=== PATIENT | male | born 1985 | race Two or more races ===

== ENCOUNTER 2021-06-04 17:31 | Emergency (ER) | payer MEDICAID, SELFPAY ==
--- NOTE | 2021-06-04 | ECG_ITS ---
Test Reason : cp Blood Pressure : / mmHG Vent. Rate : 091 BPM Atrial Rate : 091 BPM P-R Int : 160 ms QRS Dur : 078 ms QT Int : 350 ms P-R-T Axes : 048 035 062 degrees QTc Int : 430 ms Normal sinus rhythm Nonspecific T wave abnormality Abnormal ECG When compared with ECG of 03-JAN-2019 17:45, No significant change was found Referred By: Generic ED Physician Electronically Signed By:ISMAEL PARIKH MD
--- NOTE | ~2021-06-04 | XR_ITS ---
EXAMINATION: XR CHEST CLINICAL INFORMATION: Chest pain. COMPARISON: Chest radiograph dated from 01/03/2019. TECHNIQUE: PA view of the chest was obtained. FINDINGS: No significant abnormality is noted involving the heart, lungs, mediastinum, bony thorax or soft tissues. XR/XR chest 1V IMPRESSION: Unremarkable examination.
[2021-06-04 19:21] VITALS: BP 159/85; PULSE 80; RESP 18; TEMP 36.8; O2SAT 99; BMI 36.6
--- NOTE | 2021-06-04 19:50 | ED.CHESTPAIN ---
HPI - Chest Pain General Chief Complaint: Chest Pain Stated Complaint: chest pain Time Seen by Provider: 06/04/21 19:50 Source: patient Mode of arrival: ambulatory Limitations: no limitations History of Present Illness HPI narrative: chest pain substernal for one week. patient feels short of breath with it. No cough no fever. Patient thought it was gas but the pain kept getting worse. No N/V/D. MD complaint: chest pain Onset (ago): week(s) Timing of current episode: constant Pain location: substernal and epigastric Pain radiation: back Severity: moderate Quality: other (pressure) Relieving factors: other (belching) Exacerbating factors: eating Related Data Previous Rx's Medication Instructions Recorded pantoprazole 40 mg tablet,delayed 40 mg PO DAILY #20 tab 06/04/21 release (Protonix) Allergies Allergy/AdvReac Type Severity Reaction Status Date / Time No Known Allergies Allergy Verified 06/04/21 19:21 [No Known Allergies*] Review of Systems Constitutional: Constitutional: Reports no additional constitutional complaints Eyes: Eyes: Reports no additional eye complaints ENT: Denies dizziness Cardiovascular: Cardiovascular: Reports no additional cardiovascular complaints Respiratory: Respiratory: Reports as per HPI Gastrointestinal: Gastrointestinal: Reports no additional gastrointestinal complaints Musculoskeletal: Musculoskeletal: Reports no additional musculoskeletal complaints Integumentary/Breasts: Skin/Breast: Denies rash Neurologic: Reports system reviewed and no additional complaints, except as documented, Denies dizziness and Denies Sensory deficit (Neuro) Psychiatric: Psychiatric: Denies anxiety [facility] Past Medical History Medical History Diabetes Hypertension Kidney disease, chronic, stage III (GFR 30-59 ml/min) Surgical History H/O neck surgery Social History Social History Advance Directives: No Advance Directives Information Provided: No Physical Exam Vital Signs: Vital Signs: Last Vital Signs Temp 98.2 F 06/04/21 19:21 Pulse 80 06/04/21 19:21 Resp 18 06/04/21 19:21 BP 159/85 H 06/04/21 19:21 Pulse Ox 99 06/04/21 19:21 BMI result Body Mass Index 36.6 Neuro: Sensory Exam: No Sensory deficit (Neuro) Course Reevaluation(s) Reevaluation #1: no evidence of cardiac ischemia will dc on protonix Time: 21:05 MDM - Chest Pain Lab Data Result diagrams: 06/04/21 20:25 06/04/21 20:25 Labs: Lab Results 06/04/21 06/04/21 06/04/21 Range/Units 20:25 20:25 20:25 WBC 11.1 H (4.8-10.8) X10*3/uL RBC 4.08 L (4.60-5.80) X10*6/uL Hgb 11.8 L (14.0-18.0) g/dl Hct 35.6 L (42.0-52.0) % MCV 87.3 (80.0-98.0) fL MCH 28.9 (27.0-33.0) pg MCHC 33.1 (31.0-36.0) g/dl RDW 13.1 (11.0-16.0) % Plt Count 245 (160-400) X10*3/uL MPV 11.8 (9.4-12.4) fL Immature Gran % (Auto) 0.4 (0.0-0.4) % Neut % (Auto) 68.9 (45-73) % Lymph % (Auto) 22.4 (20-40) % [place] % (Auto) 5.3 (2-11) % Eos % (Auto) 2.8 (0-4) % Baso % (Auto) 0.2 (0-2) % Lymph # (Auto) 2.5 (1.2-4.9) X10*3/uL [place] # (Auto) 0.6 (0.1-1.2) X10*3/uL Eos # (Auto) 0.3 (0.0-0.4) X10*3/uL Baso # (Auto) 0.0 (0.0-0.2) X10*3/uL Abs Immat Gran (auto) 0.04 H (0.00-0.03) X10*3/uL Absolute Neuts (auto) 7.7 (2.0-8.3) x10*3/uL Absolute Nucleated RBC 0.000 (0.0-0.012) X10*3/uL Nucleated RBC % (auto) 0.0 (0.0-0.2) /100WBC Sodium 136 (135-145) mmol/L Potassium 4.4 (3.3-5.1) mmol/L Chloride 103 (96-108) mmol/L Carbon Dioxide 24 (22-29) mmol/L Anion Gap 13 (12-20) BUN 37 H (9-16) mg/dL Creatinine 2.17 H (0.5-1.4) mg/dL Estim Creat Clear Calc 61.1 Estimated GFR 35 Random Glucose 294 H (60-115) mg/dL Calcium 9.3 (8.4-10.2) mg/dL Troponin I High Sens < 3.5 (<3.5-35.0) ng/L Imaging Data Chest x-ray: Radiologist's impression: IMPRESSION: Unremarkable examination. ? ECG Data ECG #1: Interpretation: sinus 90, no st or twave changes Discharge Plan Discharge Clinical Impression: Atypical chest pain Gastritis Qualifiers: Gastritis type: unspecified gastritis Chronicity: unspecified Gastritis bleeding: without bleeding Qualified Code(s): K29.70 - Gastritis, unspecified, without bleeding Patient Disposition: Home, Self-Care Instructions: Gastritis (ED), Noncardiac Chest Pain (ED) Prescriptions: New pantoprazole [Protonix] 40 mg tablet,delayed release (DR/EC) 40 mg PO DAILY Qty: 20 RF: 0 Referrals: Constantino Andersen MD [Primary Care Provider] - 1 week
[2021-06-04 20:30] LABS: MANUAL DIFF FLAG NO
[2021-06-04 20:32] LABS: Basophils Percent Auto 0.2 % (0-2); Eosinophils Absolute Auto 0.3 X10*3/uL (0.0-0.4); Eosinophils Percent Auto 2.8 % (0-4); Hematocrit 35.6 % (42.0-52.0); Hemoglobin 11.8 g/dl (14.0-18.0); Imm Gran Abs Auto 0.04 X10*3/uL (0.00-0.03); Imm Gran Pct Auto 0.4 % (0.0-0.4); Lymphocytes Absolute Auto 2.5 X10*3/uL (1.2-4.9); Lymphocytes Percent Auto 22.4 % (20-40); Mean Corpuscular HGB Conc 33.1 g/dl (31.0-36.0); Mean Corpuscular Hemoglobin 28.9 pg (27.0-33.0); Mean Corpuscular Volume 87.3 fL (80.0-98.0); Mean Platelet Volume 11.8 fL (9.4-12.4); Monocytes Absolute Auto 0.6 X10*3/uL (0.1-1.2); Monocytes Percent Auto 5.3 % (2-11); Neutrophils Absolute Auto 7.7 x10*3/uL (2.0-8.3); Neutrophils Percent Auto 68.9 % (45-73); Platelet Count 245 X10*3/uL (160-400); Red Blood Count 4.08 X10*6/uL (4.60-5.80); Red Cell Distribution Width 13.1 % (11.0-16.0); White Blood Count 11.1 X10*3/uL (4.8-10.8)
[2021-06-04 20:46] LABS: Anion Gap 13 (12-20); Blood Urea Nitrogen 37 mg/dL (9-16); Calcium 9.3 mg/dL (8.4-10.2); Carbon Dioxide 24 mmol/L (22-29); Chloride 103 mmol/L (96-108); Creatinine Clr Calc Pharmacy 61.1; Estimated Glomerular Filt Rate 35; Glucose Random 294 mg/dL (60-115); Potassium 4.4 mmol/L (3.3-5.1); Sodium 136 mmol/L (135-145)
[2021-06-04 20:54] LABS: Troponin-I High Sensitivity < 3.5 ng/L (<3.5-35.0)
[2021-06-04] MEDS: Pantoprazole Sodium 40 MG/10 ML VIAL IVPUSH (21:27)
== END 2021-06-04 21:34 | disposition home or self-care (01) ==
PROVIDERS: Emergency Provider Emergency Medicine; PCP Internal Medicine
DX: R07.89 Other chest pain (principal); K29.70 Gastritis, unspecified, without bleeding; E11.22 Type 2 diabetes mellitus with diabetic chronic kidney disease; I12.9 Hypertensive chronic kidney disease with stage 1 through stage 4 chronic kidney disease, or unspecified chronic kidney disease; N18.30 Chronic kidney disease, stage 3 unspecified
CPT/HCPCS: 36415; 71045; 80048; 84484; 85025; 93005; 96374; 99283; 99284

== ENCOUNTER 2022-01-28 11:05 | Emergency (ER) | payer MEDICAID, SELFPAY ==
[2022-01-28 13:26] VITALS: BP 160/86; PULSE 86; RESP 20; TEMP 36.8; O2SAT 100; BMI 37.3
--- NOTE | 2022-01-28 14:45 | ED.BACK ---
HPI - Back Pain/Injury General Chief Complaint: Back Pain/Injury Stated Complaint: Lower back pain Time Seen by Provider: 01/28/22 14:45 History of Present Illness HPI Narrative: Patient complains of right-sided back pain no radiation worse with movement, no numbness weakness or tingling, no known injury, no changes to bowel or bladder Related Data Previous Rx's Medication Instructions Recorded pantoprazole 40 mg tablet,delayed 40 mg PO DAILY #20 tabs 06/04/21 release (Protonix) cyclobenzaprine 5 mg tablet 5 mg PO TID PRN muscle spasm #14 01/28/22 tabs oxycodone 5 mg tablet 5 mg PO Q6H PRN pain #10 tabs 01/28/22 Allergies Allergy/AdvReac Type Severity Reaction Status Date / Time No Known Allergies Allergy Verified 01/28/22 13:26 [No Known Allergies*] Review of Systems Review of Systems: Positive for back pain worse with movement Negatives are no fever chills no dizziness weakness no headache neck pain no chest pain no abdominal pain no numbness weakness or tingling no radiation of the pain no dysuria no frequency no incontinence no changes to bowel or bladder no skin rash Yes all other systems are reviewed and are negative PMFSH Past Medical History Source: nursing notes reviewed Medical History Diabetes Hypertension Kidney disease, chronic, stage III (GFR 30-59 ml/min) Surgical History H/O neck surgery Social History Social History Advance Directives: No Advance Directives Information Provided: No Physical Exam Vital Signs: Vital Signs: Last Vital Signs Temp 98.2 F 01/28/22 13:26 Pulse 86 01/28/22 13:26 Resp 20 01/28/22 13:26 BP 160/86 H 01/28/22 13:26 Pulse Ox 100 01/28/22 13:26 O2 Del Method 01/28/22 13:26 BMI result Body Mass Index 37.3 General appearance is no acute distress Head is normocephalic atraumatic Neck is supple Chest wall nontender No respiratory distress Abdomen soft nontender The back had right lower lumbar tenderness, skin was normal in appearance no redness warmth or wound, no CVA tenderness no focal bony tenderness, pain easily reproduced with bending and standing Extremities full range of motion x4 Neuro gait is normal patient can walk on heels walk on toes, motor is 5/5 x4 and sensation is intact and symmetrical Course Course Course Narrative: Well-appearing patient with back strain no neurological deficit is discharged Discharge Plan Discharge Clinical Impression: Strain of lumbar region Patient Disposition: Home, Self-Care Additional Instructions: You likely have strained muscles in her back and usually this resolves on its own in a few days Follow with primary doctor if needed Return any time any worse condition or any concerns Use Tylenol as needed if your going to work or driving, but you can use muscle relaxer or narcotic for home use only as they may cause drowsiness Prescriptions: New oxycodone 5 mg tablet 5 mg PO Q6H PRN (Reason: pain) Qty: 10 0RF Rx Instructions: Partial Fill upon patient request. Narcotic may cause drowsiness no driving for 6 hours after taking cyclobenzaprine 5 mg tablet 5 mg PO TID PRN (Reason: muscle spasm) Qty: 14 0RF Rx Instructions: This medication may cause drowsiness so no driving for 8 hours after taking No Action pantoprazole [Protonix] 40 mg tablet,delayed release (DR/EC) 40 mg PO DAILY Qty: 20 0RF Stand Alone Forms: Work/School Release
== END 2022-01-28 14:59 | disposition home or self-care (01) ==
PROVIDERS: Emergency Provider Emergency Medicine; PCP Internal Medicine
DX: S39.012A Strain of muscle, fascia and tendon of lower back, initial encounter (principal); X58.XXXA Exposure to other specified factors, initial encounter; Y93.9 Activity, unspecified; Y92.9 Unspecified place or not applicable; Y99.9 Unspecified external cause status; E11.9 Type 2 diabetes mellitus without complications
CPT/HCPCS: 99282; 99283

== ENCOUNTER 2022-09-03 06:12 | Inpatient (IN) | payer MEDICAID, SELFPAY ==
--- NOTE | ~2022-09-03 | CT_ITS ---
EXAMINATION: CT ABDOMEN AND PELVIS WITHOUT CONTRAST CLINICAL INFORMATION: Left-sided abdominal pain. Rule out kidney stone. COMPARISON: 01/26/2019 TECHNIQUE: Multidetector volumetric imaging was performed from the superior aspect of the liver through the pubic symphysis. Sagittal and coronal reformatted images were obtained on the technologist's workstation. This CT examination was performed using dose optimization techniques as appropriate, variously including the following: *Automated exposure control *Adjustment of mA and/or kV according to patient size (this includes techniques or standardized protocols for targeted exams where dose is matched to indication/reason for exam; i.e. extremities or head) *Use of iterative reconstruction technique DLP: 913 mGy-cm FINDINGS: LUNG BASES: The visualized lung bases are unremarkable. LIVER, GALLBLADDER, AND BILIARY TREE: The liver is normal in size, shape, and attenuation. No focal hepatic lesion or biliary ductal dilatation is present. The gallbladder is unremarkable with no evidence of radiopaque gallstones, gallbladder wall thickening, or obvious pericholecystic inflammatory changes. PANCREAS: Unremarkable. SPLEEN: Unremarkable. ADRENAL GLANDS: Unremarkable. KIDNEYS AND URETERS: The kidneys are normal in size, shape, and attenuation. No hydronephrosis or hydroureter. Mild cortical thinning at the lower pole of the right kidney. Multiple bilateral renal calculi. On the right there are greater than 10 total calculi throughout the kidney. The largest is seen at the midpole measuring 0.4 cm, 12.5 cm from the posterior axillary line. On the left there are at least 3 calculi present. This includes a midpole 0.2 cm calculus which is 12 cm from the posterior axillary line. BLADDER: Normally distended without wall thickening. No calculi. GASTROINTESTINAL TRACT: The stomach is unremarkable. Normal caliber of the small bowel. No obstruction. The appendix is prominent measuring 1.2 cm. There is appearance of fatty infiltration of the appendiceal wall with the wall measuring 0.3 cm in thickness. There may be very faint inflammation adjacent to the tip of the appendix. ABDOMINAL WALL: No significant hernia is appreciated. LYMPH NODES: Normal. VASCULAR: Unremarkable. PELVIC VISCERA: The prostate and seminal vesicles are unremarkable. OSSEOUS STRUCTURES: No acute or suspicious osseous abnormality. Mild degenerative changes of the spine. Vacuum disc phenomenon at L5-S1. CT/CT abdomen pelvis wo IV con IMPRESSION: 1. No hydronephrosis. Multiple bilateral nonobstructing renal calculi. 2. Prominent appearance of the appendix with fatty infiltration of the appendiceal wall. There may be very faint inflammation adjacent to the tip of the appendix. This could represent early appendicitis. This may also be associated with chronic inflammation. Fleischner guidelines were followed.
[2022-09-03 06:22] VITALS: BP 156/83; PULSE 89; RESP 16; TEMP 36.7; O2SAT 98; BMI 47.8
--- OUTSIDE RECORDS SUMMARY | 2022-09-03 07:08 | XMS_ITS | Continuity of Care Document ---
:1985 Author Organization [facility] Endocrinology and D mylesmonse Address [address] [place] [phone]- Care Team Providers Name Role Phone Nathaly GAINES, Constantino Williamson Primary Care Physician Encounter [facility] Date(s): 10/22/21 - 11/21/21 [facility] Endocrinology and Diabetes [address] [place] [id number] Attending Physician: Amaris Myrick Admitting Physician: AdmAmaris tyler Referring Physician: AdmtrAmaris Allergies, Adverse Reactions, Alerts No Known Allergies Immunizations Given and Recorded Vaccine Date Status Refusal Reason Pneumococcal Poly (PPV23) (oldterm)1 12/30/08 Given diphtheria-tetanus toxoids (DT)2 12/01/08 Given 1Admin Note: [id number] Note: VIS GIVEN date of vis 11/30/93 Medications Freestyle Jose 2 14-day Sensors Freestyle Jose 2 14-day Sensors, See Instructions, # 2 each, Refills 11, Tot. Refills 11, Maintenance, Use to scan for blood sugar at least 4 times daily. E10.65., 06/06/21 10:54:00 EST, Compound, 178, cm, 05/29/21 14:24:00 EST, Height Start Date: 06/06/21 Status: OrderedHumalog 100 u/ml subcutaneous injection = 70 units, Subcutaneous Infusion, 2 times a day with meals, 0 Refills, Maintenance, 05/29/21 14:29:00 EST, Partial fill upon patient request if the prescription is for a schedule II opioid drug. Start Date: 05/29/21 Status: OrderedHumalog Kwik Pen 100 units/mL subcutaneous injection See Instructions, Subcutaneous Infusion, Take up to 20 units, 3 times daily before meals. E10.65., #30 mL, 5 Refills, Maintenance, 05/29/21 15:01:00 EST, [facility] #[id number], Partial fill uponpatient request if the prescription is for a sche... Start Date: 05/29/21 Stop Date: 11/20/22 Status: OrderedLantus Solostar Pen 100 units/mL subcutaneous solution See Instructions, Take 70 units once daily. E10.65., # 30 mL, 5 Refills, Soft Stop, 05/29/21 15:01:00 EST, Solution, [facility] #[id number], Partial fill upon patient request if the prescription is for a schedule II opioid drug., 178, cm, ... Start Date: 05/29/21 Status: Orderedlevothyroxine 75 mcg (0.075 mg) oral tablet = 75 mcg, By Mouth, Daily, # 30 tablet, 5 Refills, Maintenance, 01/18/15 17:24:19, Tablet, 75 mcg ByMouth Daily,x30 days Start Date: 01/18/15 Stop Date: 07/17/15 Status: Orderedlisinopril 10 mg oral tablet 1 tablet = 10 mg, By Mouth, Daily, # 30 tablet, 5 Refills, Maintenance, 01/18/15 17:24:30, Tablet, 1tablet By Mouth Daily,x30 days Start Date: 01/18/15 Stop Date: 07/17/15 Status: OrderedPen [place], 31 G x 5 mm BD Ultra Fine III See Instructions, # 150 each, Refills 11, Tot. Refills 11, Maintenance, Use to inject insulin 4 times daily. E11.65., 05/29/21 15:01:00 EST, Supply, 178, cm, 05/29/21 14:24:00 EST, Height Start Date: 05/29/21 Stop Date: 05/24/22 Status: Ordered Problem List Condition Effective Dates Status Health Status Informant Diabetes mellitus type 1(Confirmed) Active DKA - Diabetic ketoacidosis(Confirmed) Active DKA - Diabetic ketoacidosis(Confirmed) Active Drugs - total Active non-compliance(Confirmed) Hypothyroid(Confirmed) Active Lost to follow-up(Confirmed) Active Number of appointments Active missed(Confirmed) Obese class II(Confirmed) Active Obesity(Confirmed) 12/01/08 Active Social History Social History Type Response Smoking Status Never smoker entered on: 10/01/13 Sex
--- OUTSIDE RECORDS SUMMARY | 2022-09-03 07:08 | XMS_ITS | Continuity of Care Document ---
:1985 Author Organization [facility] Endocrinology and D mylesjuan diegotes Address [address] [place] [id number]- Care Team Providers Name Role Phone Constantino Andersen MD Primary Care Physician En[place] [facility] [place] Date(s): 07/24/21 - 11/21/21 [facility] Endocrinology and Diabetes [address] [place] [id number] Attending Physician: Shonda Merino MD Admitting Physician: Shonda Merino MD Referring Physician: Constantino Andersen MD Allergies, Adverse Reactions, Alerts No Known Allergies Immunizations Given and Recorded Vaccine Date Status Refusal Reason Pneumococcal Poly (PPV23) (oldterm)1 12/30/08 Given diphtheria-tetanus toxoids (DT)2 12/01/08 Given 1Admin Note: [email or web address] Note: VIS GIVEN date of vis 11/30/93 [...] mL, 5 Refills, Maintenance, 05/29/21 15:01:00 EST, [facility] #[id number], Partial fill uponpatient request if the prescription is for a sche... Start Date: 05/29/21 Stop Date: 11/20/22 Status: OrderedLantus Solostar Pen 100 units/mL subcutaneous solution See Instructions, Take 70 units once daily. E10.65., # 30 mL, 5 Refills, Soft Stop, 05/29/21 15:01:00 EST, Solution, [facility] #[id number], Partial fill upon patient request if the [...] Date: 01/18/15 Stop Date: 07/17/15 Status: OrderedPen [place], 31 G x 5 mm BD Ultra [...]
--- NOTE | 2022-09-03 08:07 | ED.ABDPAIN ---
HPI - Abdominal Pain General Chief Complaint: Abdominal Pain Stated Complaint: Abdominal pain Time Seen by Provider: 09/03/22 07:22 Source: patient Mode of arrival: ambulatory Limitations: no limitations History of Present Illness HPI narrative: 37-year-old male came in for evaluation of left lower abdominal pain. Abdominal pain started since earlier today pain is localized to the left lower abdominal area with no radiation, pain was started as mild 2/10 and pain was getting worse now it is 10/10 relieved by laying on his left side no aggravating factor, no associated miller with nausea, vomiting, fever or chills. Pain now is constant. Related Data Previous Rx's Medication Instructions Recorded pantoprazole 40 mg tablet,delayed 40 mg PO DAILY #20 tabs 06/04/21 release (Protonix) cyclobenzaprine 5 mg tablet 5 mg PO TID PRN muscle spasm #14 01/28/22 tabs oxycodone 5 mg tablet 5 mg PO Q6H PRN pain #10 tabs 01/28/22 Allergies Allergy/AdvReac Type Severity Reaction Status Date / Time No Known Allergies Allergy Verified 01/28/22 13:26 [No Known Allergies*] Review of Systems Review of Systems All other systems are reviewed and are negative Constitutional: Reports as per HPI and Reports no additional constitutional complaints Eyes: Reports as per HPI and Reports no additional eye complaints Reports system reviewed and no additional complaints, except as documented Cardiovascular: Reports as per HPI and Reports no additional cardiovascular complaints Respiratory: Reports as per HPI and Reports no additional respiratory complaints Gastrointestinal: Reports as per HPI and Reports no additional gastrointestinal complaints Genitourinary: Reports no additional female genitourinary complaints Musculoskeletal: Reports no additional musculoskeletal complaints Skin/Breast: Reports system reviewed and no additional complaints, except as docu Psychiatric: Reports no additional psychiatric complaints Endocrine: Reports no additional endocrine complaints Hematologic/Lymphatic: Reports no additional hematologic/lymphatic complaints Allergic/Immunologic: Reports no additional allergic/immunologic complaints Reports system reviewed and no additional complaints, except as documented and Reports Abnormal speech present [facility] Past Medical History Medical History (Updated 09/03/22 @ 10:44 by Luis Damico MD) Diabetes Hypertension Kidney disease, chronic, stage III (GFR 30-59 ml/min) Surgical History H/O neck surgery Social History Social History Advance Directives: No Physical Exam ED Vital Signs: Vital Signs - 24 hr 09/03/22 06:22 09/03/22 09:28 Temperature 98.0 F Pulse Rate 89 83 Respiratory Rate 16 14 Blood Pressure 156/83 H 139/76 Pulse Oximetry 98 100 Oxygen Delivery Method Room Air Room Air BMI result Body Mass Index 47.8 Vital signs have been reviewed as appeared to be correct. Blood pressure normal. Heart rate normal. Respiration rate normal. Temperature normal. Oxygen saturation normal. Appearance: Alert. Oriented X3. No acute distress. Head: Normal external exam. Normocephalic. Atraumatic. No Nuno signs noted. No raccoon eyes noted Eyes: PERRLA. EOMI. Conjunctiva and sclera normal. Eyelids normal. ENT: TM's Normal. Pharynx normal. Uvula midline. Moist mucous membranes. No trismus noted. No drooling noted. No muffled voice noted. Neck: Normal inspection. Neck supple. FROM. No adenopathy. Thyroid Normal. No meningeal signs. No neck mass noted. CVS: Normal heart rate and rhythm. Heart sound normal. No murmurs noted. Pulses normal throughout. Respiratory: No respiratory distress. Painless inspiration. Breath sounds normal. No wheezes/rales/rhonchi noted. Chest nontender. No accessory muscle usage noted or decreased air movement noted. Abdomen: Soft, mild tenderness to the left lower quadrant area with no rebound tenderness, no guarding.. Bowel sounds normal in all 4 quadrants. No distention noted. No organomegaly noted. No visible injury noted. Back: No CVA tenderness. Full range of motion noted. Skin: Skin warm and dry. Normal skin color. Normal skin turgor. No rashes/lesions/lacerations noted. Extremities: No lower extremity edema. Extremities exhibit normal range of motion. Extremities nontender. Neuro: Oriented X 3. Cranial nerve exam: II-XII are grossly intact No motor deficit. No sensory deficit. Reflexes normal. Course Course Course Narrative: 37-year-old male came in for evaluation of 1 day history of lower abdominal pain, CT physical exam and labs are consistent with early acute appendicitis, Dr. De Paz who examined the patient and will be a admitted to surgery. Patient also is showing acute on chronic renal insufficiency likely due to uncontrolled diabetes patient hemoglobin A1c is 9.1. Medical Decision Making Differential Diagnosis Differential Diagnoses: The differential diagnosis associated with the presentation includes (Acute abdominal pain, acute appendicitis, acute on chronic renal insufficiency, poorly controlled diabetes) Admission/Observation Consideration of admission/observation: Escalation of care including admission/observation considered Consult Healthcare Provider Management of the patient was discussed with: Missile Tracking Technician Dr. De Paz. Lab Data MDM Lab Attestation statement: I reviewed the patient's lab results. 09/03/22 08:27 09/03/22 08:27 Labs: Lab Results 09/03/22 09/03/22 09/03/22 Range/Units 08:27 08:27 09:33 WBC 11.3 H (4.8-10.8) X10*3/uL RBC 3.89 L (4.60-5.80) X10*6/uL Hgb 11.1 L (14.0-18.0) g/dl Hct 33.6 L (42.0-52.0) % MCV 86.4 (80.0-98.0) fL MCH 28.5 (27.0-33.0) pg MCHC 33.0 (31.0-36.0) g/dl RDW 12.8 (11.0-16.0) % Plt Count 242 (160-400) X10*3/uL MPV 11.3 (9.4-12.4) fL Immature Gran % (Auto) 0.2 (0.0-0.4) % Neut % (Auto) 68.7 (45-73) % Lymph % (Auto) 22.4 (20-40) % [place] % (Auto) 5.6 (2-11) % Eos % (Auto) 2.8 (0-4) % Baso % (Auto) 0.3 (0-2) % Lymph # (Auto) 2.5 (1.2-4.9) X10*3/uL [place] # (Auto) 0.6 (0.1-1.2) X10*3/uL Eos # (Auto) 0.3 (0.0-0.4) X10*3/uL Baso # (Auto) 0.0 (0.0-0.2) X10*3/uL Abs Immat Gran (auto) 0.02 (0.00-0.03) X10*3/uL Absolute Neuts (auto) 7.7 (2.0-8.3) x10*3/uL Absolute Nucleated RBC 0.000 (0.0-0.012) X10*3/uL Nucleated RBC % (auto) 0.0 (0.0-0.2) /100WBC Sodium 142 (135-145) mmol/L Potassium 4.3 (3.3-5.1) mmol/L Chloride 108 (96-108) mmol/L Carbon Dioxide 21 L (22-29) mmol/L Anion Gap 17 (12-20) BUN 30 H (9-16) mg/dL Creatinine 2.37 H (0.5-1.4) mg/dL Estim Creat Clear Calc 51.1 Estimated GFR 31 Random Glucose 121 H (60-115) mg/dL Estimat Average Glucose mg/dL Hemoglobin A1c % % Calcium 8.8 (8.4-10.2) mg/dL Total Bilirubin 0.3 (0.0-1.0) mg/dL Direct Bilirubin < 0.2 (0.0-0.5) mg/dL AST 14 (5-37) U/L ALT 20 (0-40) U/L Alkaline Phosphatase 73 (39-117) U/L Total Protein 6.8 (6.5-8.0) g/dL Albumin 3.9 (3.5-5.0) g/dL Lipase 14 (8-78) U/L Urine Color Yellow Urine Appearance Clear Urine pH 6.0 (5.0-9.0) Ur Specific [place] 1.015 (1.005-1.025) Urine Protein >=1000 (4+) H (Neg-Trace) mg/dL Urine Glucose (UA) 500 H (Negative) mg/dL Urine Ketones Negative (Negative) mg/dL Urine Blood Small (1+) H (Negative) Urine Nitrite Negative (Negative) Ur Leukocyte Esterase Negative (Negative) Urine RBC 0-2 (0-2) /HPF Urine WBC 0-5 (0-5) /HPF Ur Squamous Epith Cells 3-5 (0-2) /HPF Urine Bacteria None Seen (None Seen) Hyaline Casts 3-5 (0-2) /LPF 09/03/22 Range/Units 09:41 WBC (4.8-10.8) X10*3/uL RBC (4.60-5.80) X10*6/uL Hgb (14.0-18.0) g/dl Hct (42.0-52.0) % MCV (80.0-98.0) fL MCH (27.0-33.0) pg MCHC (31.0-36.0) g/dl RDW (11.0-16.0) % Plt Count (160-400) X10*3/uL MPV (9.4-12.4) fL Immature Gran % (Auto) (0.0-0.4) % Neut % (Auto) (45-73) % Lymph % (Auto) (20-40) % [place] % (Auto) (2-11) % Eos % (Auto) (0-4) % Baso % (Auto) (0-2) % Lymph # (Auto) (1.2-4.9) X10*3/uL [place] # (Auto) (0.1-1.2) X10*3/uL Eos # (Auto) (0.0-0.4) X10*3/uL Baso # (Auto) (0.0-0.2) X10*3/uL Abs Immat Gran (auto) (0.00-0.03) X10*3/uL Absolute Neuts (auto) (2.0-8.3) x10*3/uL Absolute Nucleated RBC (0.0-0.012) X10*3/uL Nucleated RBC % (auto) (0.0-0.2) /100WBC Sodium (135-145) mmol/L Potassium (3.3-5.1) mmol/L Chloride (96-108) mmol/L Carbon Dioxide (22-29) mmol/L Anion Gap (12-20) BUN (9-16) mg/dL Creatinine (0.5-1.4) mg/dL Estim Creat Clear Calc Estimated GFR Random Glucose (60-115) mg/dL Estimat Average Glucose 226 mg/dL Hemoglobin A1c % 9.5 % Calcium (8.4-10.2) mg/dL Total Bilirubin (0.0-1.0) mg/dL Direct Bilirubin (0.0-0.5) mg/dL AST (5-37) U/L ALT (0-40) U/L Alkaline Phosphatase (39-117) U/L Total Protein (6.5-8.0) g/dL Albumin (3.5-5.0) g/dL Lipase (8-78) U/L Urine Color Urine Appearance Urine pH (5.0-9.0) Ur Specific [place] (1.005-1.025) Urine Protein (Neg-Trace) mg/dL Urine Glucose (UA) (Negative) mg/dL Urine Ketones (Negative) mg/dL Urine Blood (Negative) Urine Nitrite (Negative) Ur Leukocyte Esterase (Negative) Urine RBC (0-2) /HPF Urine WBC (0-5) /HPF Ur Squamous Epith Cells (0-2) /HPF Urine Bacteria (None Seen) Hyaline Casts (0-2) /LPF Independent Interpretation I performed an independent interpretation of an: CT Scan (Suspicion for acute appendicitis.) Radiology Impression Discussion of test interpretation with radiology: I have reviewed the radiologist's reading. Chronic Conditions Patient?s care impacted by: Diabetes Medications Administered Discontinued Medications Generic Name Dose Route Start Last Admin Trade Name Freq PRN Reason Stop Dose Admin Sodium Chloride 1,000 mls @ 999 mls/hr 09/03/22 07:53 09/03/22 09:51 Ns IV 09/03/22 08:53 999 mls/hr .Q1H1M ONE Administration Ketorolac Tromethamine 30 mg 09/03/22 07:53 09/03/22 09:50 Ketorolac Tromethamine 30 Mg/Ml Vial IVPUSH 09/03/22 07:54 30 mg ONCE ONE Administration Morphine Sulfate 2 mg 09/03/22 07:53 09/03/22 09:50 Morphine Sulfate 2 Mg/Ml Cartridge IVPUSH 09/03/22 07:54 2 mg ONCE ONE Administration Protocol Discharge Plan Discharge Clinical Impression: Acute appendicitis, Acute on chronic renal insufficiency Patient Disposition: Admitted As Inpatient
[2022-09-03 08:32] LABS: MANUAL DIFF FLAG NO
[2022-09-03 08:34] LABS: Basophils Percent Auto 0.3 % (0-2); Eosinophils Absolute Auto 0.3 X10*3/uL (0.0-0.4); Eosinophils Percent Auto 2.8 % (0-4); Hematocrit 33.6 % (42.0-52.0); Hemoglobin 11.1 g/dl (14.0-18.0); Imm Gran Abs Auto 0.02 X10*3/uL (0.00-0.03); Imm Gran Pct Auto 0.2 % (0.0-0.4); Lymphocytes Absolute Auto 2.5 X10*3/uL (1.2-4.9); Lymphocytes Percent Auto 22.4 % (20-40); Mean Corpuscular Hemoglobin 28.5 pg (27.0-33.0); Mean Corpuscular Volume 86.4 fL (80.0-98.0); Mean Platelet Volume 11.3 fL (9.4-12.4); Monocytes Absolute Auto 0.6 X10*3/uL (0.1-1.2); Monocytes Percent Auto 5.6 % (2-11); Neutrophils Absolute Auto 7.7 x10*3/uL (2.0-8.3); Neutrophils Percent Auto 68.7 % (45-73); Platelet Count 242 X10*3/uL (160-400); Red Blood Count 3.89 X10*6/uL (4.60-5.80); Red Cell Distribution Width 12.8 % (11.0-16.0); White Blood Count 11.3 X10*3/uL (4.8-10.8)
[2022-09-03 08:57] LABS: Alanine Aminotransferase 20 U/L (0-40); Albumin Level 3.9 g/dL (3.5-5.0); Alkaline Phosphatase 73 U/L (39-117); Anion Gap 17 (12-20); Aspartate Amino Transferase 14 U/L (5-37); Bilirubin Direct < 0.2 mg/dL (0.0-0.5); Bilirubin Total 0.3 mg/dL (0.0-1.0); Blood Urea Nitrogen 30 mg/dL (9-16); Calcium 8.8 mg/dL (8.4-10.2); Carbon Dioxide 21 mmol/L (22-29); Chloride 108 mmol/L (96-108); Creatinine Clr Calc Pharmacy 51.1; Estimated Glomerular Filt Rate 31; Glucose Random 121 mg/dL (60-115); Lipase 14 U/L (8-78); Potassium 4.3 mmol/L (3.3-5.1); Sodium 142 mmol/L (135-145); Total Protein 6.8 g/dL (6.5-8.0)
[2022-09-03 09:28] VITALS: BP 139/76; PULSE 83; RESP 14; O2SAT 100
[2022-09-03 09:50] LABS: Appearance Urine Clear; Color Urine Yellow; Glucose Urine UA 500 mg/dL (Negative); Leukocyte Esterase Urine Negative (Negative); Nitrite Urine Negative (Negative); Specific Gravity - Urine 1.015 (1.005-1.025); UMIC TRIGGER UACC YES; Urine Blood Small (1+) (Negative); Urine Ketones Negative (Negative); Urine Protein >=1000 (4+) mg/dL (Neg-Trace)
[2022-09-03] MEDS: Ketorolac Tromethamine 30 MG/ML VIAL IVPUSH (09:50)
[2022-09-03] MEDS: Morphine Sulfate 2 MG/ML CARTRIDGE IVPUSH (09:50)
[2022-09-03] MEDS: 0.9 % Sodium Chloride 1,000 ML 999 ML IV (09:51)
[2022-09-03 09:57] LABS: Estimated Average Glucose 226 mg/dL; Hemoglobin A1c % 9.5 %
[2022-09-03 10:03] LABS: Bacteria Urine None Seen (None Seen); RBC Urine 0-2 /HPF (0-2); WBC Urine 0-5 /HPF (0-5)
--- NOTE | 2022-09-03 10:18 | P.HPGS_ITS ---
History of Present Illness History of Present Illness Date of Service: 09/03/22 Chief complaint: Abdominal pain Narrative: Jordy Rehman is a 37 year old male who reports a history of type 1 diabetes since about 7 years of age seen in consultation for vague abdominal pain localizing to the right lower quadrant that started around 23:00 last night. He noted vague, periumbilical pain with migration to the right lower quadrant and suprapubic area. There has been no associated nausea or vomiting or blood per rectum. Patient denies any known history of inflammatory bowel disease in this is the 1st episode of abdominal pain. He denies any recent trauma. Patient also notes a history of stage III or 4 kidney disease related to his diabetes. He is unsure of his diabetic control and does not recall a recent hemoglobin A1c. Social history is remarkable for not smoking or drinking. He works doing [employer] Family history is negative for any GI malignancies Review of Systems Review of Systems: Yes all other systems are reviewed and are negative Constitutional: Constitutional: Reports as per [facility] Past Medical History Medical History (Updated 09/03/22 @ 10:22 by Rj De Paz MD) Diabetes Hypertension Kidney disease, chronic, stage III (GFR 30-59 ml/min) Surgical History Surgical History H/O neck surgery Social History Social History Advance Directives: No Meds Allergies Allergy/AdvReac Type Severity Reaction Status Date / Time No Known Allergies Allergy Verified 01/28/22 13:26 [No Known Allergies*] Physical Exam Vital Signs: Vital Signs: Last Vital Signs Temp 98.0 F 09/03/22 06:22 Pulse 83 09/03/22 09:28 Resp 14 09/03/22 09:28 BP 139/76 09/03/22 09:28 Pulse Ox 100 09/03/22 09:28 O2 Del Method 09/03/22 09:28 BMI result Body Mass Index 47.8 The patient is non-toxic & in good spirits NC/AT, PERRLA, EOMI Mood, affect & judgment all appear appropriate Sclera anicteric conjunctiva pink and moist Oropharynx is clear with no aphthous ulcers, Mallampati class 4, mucous membranes moist Neck is supple with no masses, adenopathy or bruits Thyroid is nontender and free of dominant masses Heart is regular, normal S1-S2 no rubs or murmurs Lungs are clear and equal anteriorly with no audible wheezing, rubs or dullness to percussion No CVA tenderness present Abdomen is obese with no demonstrable hernias. There is vague right-sided abdominal discomfort in the right lower quadrant with no peritoneal sign and no guarding. No HSM, rebound, rigidity, guarding, masses or bruits are present. Rectal exam is deferred Skin has good turgor and is free of rashes Extremities free of cyanosis clubbing edema Results Results Labs: Short CBC 09/03/22 Range/Units 08:27 WBC 11.3 H (4.8-10.8) X10*3/uL Hgb 11.1 L (14.0-18.0) g/dl Hct 33.6 L (42.0-52.0) % Plt Count 242 (160-400) X10*3/uL BMP 09/03/22 08:27 Sodium 142 Potassium 4.3 Chloride 108 Carbon Dioxide 21 L BUN 30 H Creatinine 2.37 H Calcium 8.8 Liver Function 09/03/22 Range/Units 08:27 Total Bilirubin 0.3 (0.0-1.0) mg/dL Direct Bilirubin < 0.2 (0.0-0.5) mg/dL AST 14 (5-37) U/L ALT 20 (0-40) U/L Alkaline Phosphatase 73 (39-117) U/L Albumin 3.9 (3.5-5.0) g/dL Urine 09/03/22 Range/Units 09:33 Urine Color Yellow Urine Appearance Clear Urine pH 6.0 (5.0-9.0) Ur Specific [place] 1.015 (1.005-1.025) Urine Protein >=1000 (4+) H (Neg-Trace) mg/dL Urine Glucose (UA) 500 H (Negative) mg/dL Abdomen CT scan report/results: report reviewed and image reviewed CT scan - pelvis: report reviewed and image reviewed Additional studies: HbA1C is elevated at 9.5 and was discussed with the patient. His poorly controlled diabetes and ongoing renal issues, obesity and increased risk for cardiovascular complications including amputation of Duncan's gangrene were candidly discussed with the patient. Assessment and Plan (1) Acute appendicitis: Status: Acute (2) Poorly controlled type 2 diabetes mellitus: Status: Acute (3) BMI 50.0-59.9, adult: Status: Acute (4) Kidney disease, chronic, stage III (GFR 30-59 ml/min): Status: Acute (5) Diabetes: Status: Acute (6) Hypertension: Status: Acute Plan I had a candid discussion with the patient regarding his comorbidities and poorly controlled diabetes and his increased operative risk, but in the setting of possible early appendicitis. The patient's clinical history is most consistent with appendicitis, as is his leukocytosis; however his CT under whelming which may be a function of the timing of appendicitis versus his body habitus and imaging limitations. Given the inherent risks to the patient of progression of appendicitis and need for operative intervention with the increased risk of complications of abscess, infection, incisional hernia, I have recommended the patient be admitted, placed on bowel rest and IV Zosyn. I will consult the hospitalist regarding the patient's diabetes and renal function as well as others suspected medical issues. The option of a 2nd opinion was also offered with the patient. Explained the typical course of antibiotics for 2-3 days and then, hopeful discharge on oral antibiotics and follow-up with me and his PCP and other physicians to better control his poorly controlled diabetes. However, if this plan fails, operative intervention will be required in the inherent risks of complications will be greater than average given the patient's comorbidities. Increased risk for other poorly controlled diabetes related health issues such as cardiovascular disease, malignancy, amputation, Duncan's gangrene were also discussed with the patient. I suspect based on his habitus he also has untreated obstructive sleep apnea and will need to monitor him as such. Patient will be admitted to my service with IV Zosyn. Strict bowel rest except for medications. Hold on any narcotics for now. Trend exam and labs. Hospitalist consultation regarding comorbidities. Time Spent With Patient Time: Total time managing care of this patient today ____ minutes. Quality Stroke Does the patient have a stroke diagnosis?: No VTE Prior VTE?: No VTE Risk Level:: Surgical - moderate VTE Device Contraindication: N/A - Device Ordered VTE Drug Contraindication: N/A - Med Ordered Procedures Date of Service Date of Service: 09/03/22
--- NOTE | 2022-09-03 12:00 | PC.NURSE ---
No insulin given d/t hypoglycemia and pt being NPO
--- NOTE | 2022-09-03 12:02 | HO.PM.IMCN ---
History of Present Illness Data of Consult Service Date: 09/03/22 Requesting physician: Rj De Paz Primary Care Provider: MD CAITLIN Gale Reason for consult: medical management 37-year-old male with history of poorly controlled type 1 diabetes, hypertension, and diabetic nephropathy with CKD stage 3 admitted to General surgery for management of acute appendicitis with consult placed to medicine for medical management. The patient has no complaints at this time. His most recent hemoglobin A1c is 9.5%. 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 Reports he is not compliant with diabetic diet. Has diabetic nephropathy but denies any other known complications related to his diabetes. Review of Systems Review of Systems: General: No fevers, malaise, unintentional weight loss HEENT: No blurred vision, diplopia. No sore throat, nasal congestion, rhinorrhea, sinus pain, ear pain Cardiovascular: No chest pain, palpitations, or leg edema Respiratory: No shortness of breath, wheezing, cough GI: + abdominal pain. No nausea, vomiting, diarrhea, constipation, melena, hematochezia : No dysuria, hematuria, increased urinary frequency, decreased urinary output MSK: No myalgia, back pain Neuro: No headaches, weakness, paresthesias Skin: No rashes or lesions COUNT INCLUDES [facility] Medical History Diabetes Hypertension Kidney disease, chronic, stage III (GFR 30-59 ml/min) Surgical History H/O neck surgery Social History (Updated 09/03/22 @ 12:06 by SUSANNE Pina) Household Members: Family Housing: House Do you presently have visiting nurse or other home services: No Alcohol intake: never Patient Tobacco Use Status: Never used Tobacco Smoked in Last 30 Days: No Use of substances other than those prescribed or required for medical reasons: No Currently Displaying Signs/Symptoms of Drug Intoxication Withdrawal: No Have you been hit, kicked, punched, or otherwise hurt by someone within the past year? If so, by whom?: No Do you feel safe in your current relationship?: Yes Is there a partner from a previous relationship who is making you feel unsafe now?: No Are you made to feel afraid or neglected: No Advance Directives: No Advance Directives Information Provided: No Advance Directives on File: No Do you have thoughts of harming others: None Do you have a plan to hurt others: No Plan Recently lost weight without trying: No How much weight loss: Not applicable Eating poorly because of decreased appetite: No Nutrition screen score: 0 Nutrition Risks: No Nutritional Risk Poor oral hygiene: No service: No Current occupational status: employed Meds Allergies Allergy/AdvReac Type Severity Reaction Status Date / Time No Known Allergies Allergy Verified 01/28/22 13:26 [No Known Allergies*] Active Medications: Current Medications Acetaminophen (Acetaminophen 325 Mg Tablet) 975 mg PO Q6H PRN PRN Reason: Pain, Mild (Pain Scale 1-3) Heparin Sodium (Porcine) (Heparin Sodium,Porcine 5,000 Unit/Ml Vial) 5,000 unit SUBCUT Q12H YAJAIRA Lactated Ringer's (Lr) 1,000 mls @ 100 mls/hr IVCONT .Q10H YAJAIRA Piperacillin Sod/Tazobactam (Sod 3.375 gm/ Sodium Chloride) 50 mls @ 100 mls/hr IV Q6H YAJAIRA Ondansetron HCl (Ondansetron Hcl 4 Mg/2 Ml Vial) 4 mg IVPUSH Q6H PRN PRN Reason: Nausea and Vomiting Pharmacy Consult (Consult Rx Perform Med Rec) 1 each MISCELLANE ONCE PRN PRN Reason: Consult order Sodium Chloride (0.9 % Sodium Chloride Flush 3 Ml Syringe) 3 ml IVFLUSH QSHIFT YAJAIRA Home Medications Medication Instructions Recorded Confirmed Last Taken Type insulin glargine 100 unit/mL (3 70 unit subcut DAILY 09/03/22 09/03/22 09/02/22 History mL) subcutaneous pen (Lantus Solostar U-100 Insulin) insulin lispro 100 unit/mL 0 - 20 unit subcut TID 09/03/22 09/03/22 09/02/22 History subcutaneous pen Physical Exam Vital Signs and Narrative: Vital Signs: Last Vital Signs Temp 98.0 F 09/03/22 06:22 Pulse 83 09/03/22 09:28 Resp 14 09/03/22 09:28 BP 139/76 09/03/22 09:28 Pulse Ox 100 09/03/22 09:28 O2 Del Method 09/03/22 09:28 BMI result Body Mass Index 47.8 Constitutional - Awake and Alert, No apparent distress Eyes - PERRLA, EOMI Cardiovascular - S1S2, RRR, No edema Respiratory - Normal lung expansion, Normal respiratory effort, No respiratory distress, CTA bilaterally Extremities - no calf tenderness bilaterally, no swelling Skin - Warm/Dry Neurological - Alert & oriented x3, 5/5 strength BUE and BLE Psychological - Appropriate affect Results Labs 09/03/22 08:27 09/03/22 08:27 Labs: Laboratory Results - last 24 hr 09/03/22 09/03/22 09/03/22 08:27 08:27 09:33 MCV 86.4 MCH 28.5 MCHC 33.0 RDW 12.8 Plt Count 242 MPV 11.3 Immature Gran % (Auto) 0.2 Neut % (Auto) 68.7 Lymph % (Auto) 22.4 [place] % (Auto) 5.6 Eos % (Auto) 2.8 Baso % (Auto) 0.3 Lymph # (Auto) 2.5 [place] # (Auto) 0.6 Eos # (Auto) 0.3 Baso # (Auto) 0.0 Abs Immat Gran (auto) 0.02 Absolute Neuts (auto) 7.7 Absolute Nucleated RBC 0.000 Nucleated RBC % (auto) 0.0 Anion Gap 17 Estim Creat Clear Calc 51.1 Estimated GFR 31 Random Glucose 121 H Estimat Average Glucose Hemoglobin A1c % Calcium 8.8 Total Bilirubin 0.3 Direct Bilirubin < 0.2 AST 14 ALT 20 Alkaline Phosphatase 73 Total Protein 6.8 Albumin 3.9 Lipase 14 Urine Color Yellow Urine Appearance Clear Urine pH 6.0 Ur Specific [place] 1.015 Urine Protein >=1000 (4+) H Urine Glucose (UA) 500 H Urine Ketones Negative Urine Blood Small (1+) H Urine Nitrite Negative Ur Leukocyte Esterase Negative Urine RBC 0-2 Urine WBC 0-5 Ur Squamous Epith Cells 3-5 Urine Bacteria None Seen Hyaline Casts 3-5 09/03/22 09:41 MCV MCH MCHC RDW Plt Count MPV Immature Gran % (Auto) Neut % (Auto) Lymph % (Auto) [place] % (Auto) Eos % (Auto) Baso % (Auto) Lymph # (Auto) [place] # (Auto) Eos # (Auto) Baso # (Auto) Abs Immat Gran (auto) Absolute Neuts (auto) Absolute Nucleated RBC Nucleated RBC % (auto) Anion Gap Estim Creat Clear Calc Estimated GFR Random Glucose Estimat Average Glucose 226 Hemoglobin A1c % 9.5 Calcium Total Bilirubin Direct Bilirubin AST ALT Alkaline Phosphatase Total Protein Albumin Lipase Urine Color Urine Appearance Urine pH Ur Specific [place] Urine Protein Urine Glucose (UA) Urine Ketones Urine Blood Urine Nitrite Ur Leukocyte Esterase Urine RBC Urine WBC Ur Squamous Epith Cells Urine Bacteria Hyaline Casts Imaging Radiologist's Impressions: Impressions Abdomen/Pelvis CT 09/03/22 08:34 IMPRESSION: 1. No hydronephrosis. Multiple bilateral nonobstructing renal calculi. 2. Prominent appearance of the appendix with fatty infiltration of the appendiceal wall. There may be very faint inflammation adjacent to the tip of the appendix. This could represent early appendicitis. This may also be associated with chronic inflammation. Fleischner guidelines were followed. Assessment and Plan (1) Acute appendicitis: Status: Acute Plan 37-year-old male with history of poorly controlled type 1 diabetes, hypertension, and diabetic nephropathy with CKD stage 3 admitted to general surgery for management of acute appendicitis with consult placed to Hospital Medicine for medical management. # acute appendicitis -continue Zosyn per General surgery for conservative management -NPO for bowel rest -plan per General surgery # uncontrolled type 1 diabetes -Hgb A1c 9.5%, goal <7.0% -POC glucose -Hold basal insulin at this time as patient is NPO. 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
[2022-09-03] MEDS: Piperacillin Sodium/Tazobactam 3.375 GM in 0.9 % Sodium Chloride 50 ML IV ×3 (12:06→22:14)
[2022-09-03] MEDS: Lactated Ringers 1,000 ML 100 ML IVCONT ×2 (12:08→20:43)
--- NOTE | 2022-09-03 12:28 | PHA.MEDREC ---
Pharmacy Consult ? Medication Reconciliation Pharmacy has completed the medication reconciliation.
[2022-09-03 12:43] LABS: Glucose, Whole Blood 65 mg/dL (60-115)
[2022-09-03 13:55] LABS: Glucose, Whole Blood 157 mg/dL (60-115)
--- NOTE | 2022-09-03 16:47 | MHC.CM.PN ---
Attempted to meet with patient to review discharge planning, but pt is sound asleep. Will meet with patient when he wakes.
[2022-09-03 18:15] LABS: Glucose, Whole Blood 200 mg/dL (60-115)
--- NOTE | 2022-09-03 18:25 | MHC.CM.PN ---
CM met with admitted patient with bed assignment pending. A&Ox4. Lives with S.O. Has DM supplies. No other DME/services. Employed. XMS [employer] x[employer]. No HCP. Declines to complete. D/C plan: Home without services. Pt will drive himself home. CM will follow for d/c planning.
[2022-09-03 18:32] VITALS: BP 105/54; PULSE 70; RESP 18; TEMP 36.3; O2SAT 100
--- NOTE | 2022-09-03 18:33 | PC.NURSE ---
Insulin held per physician d/t pt being NPO.
--- NOTE | 2022-09-03 18:52 | PC.NURSE ---
Pt ambulatory to and from restroom
[2022-09-03 19:46] LABS: COVID-19 Test Negative (Negative); IDNOW Serial# 55D5AD1C
--- NOTE | 2022-09-03 20:16 | PC.NURSE ---
RN to RN report given to nurse Knapp. Pt being transferred to room 353 and aware of plan of care.
[2022-09-03 20:28] VITALS: BMI 49.0
[2022-09-03 20:45] LABS: Glucose, Whole Blood 274 mg/dL (60-115)
[2022-09-03 21:13] VITALS: BP 149/76; PULSE 84; RESP 18; TEMP 36.2; O2SAT 99
[2022-09-03] MEDS: Insulin Lispro 100 UNIT/ML 3 ML VIAL SUBCUT (21:23)
[2022-09-03] MEDS: 0.9 % Sodium Chloride Flush 3 ML SYRINGE IVFLUSH (22:18)
[2022-09-04 03:45] VITALS: BP 133/64; PULSE 75; RESP 18; TEMP 36.9; O2SAT 97
[2022-09-04] MEDS: Piperacillin Sodium/Tazobactam 3.375 GM in 0.9 % Sodium Chloride 50 ML IV (04:16)
[2022-09-04 05:54] LABS: MANUAL DIFF FLAG NO
[2022-09-04 06:19] LABS: Alanine Aminotransferase 16 U/L (0-40); Albumin Level 3.3 g/dL (3.5-5.0); Alkaline Phosphatase 69 U/L (39-117); Anion Gap 12 (12-20); Aspartate Amino Transferase 12 U/L (5-37); Bilirubin Total 0.6 mg/dL (0.0-1.0); Blood Urea Nitrogen 26 mg/dL (9-16); Calcium 8.2 mg/dL (8.4-10.2); Carbon Dioxide 23 mmol/L (22-29); Chloride 107 mmol/L (96-108); Creatinine Clr Calc Pharmacy 54.6; Estimated Glomerular Filt Rate 33; Glucose Random 265 mg/dL (60-115); Potassium 4.5 mmol/L (3.3-5.1); Sodium 137 mmol/L (135-145); Total Protein 5.8 g/dL (6.5-8.0)
[2022-09-04 06:25] LABS: Basophils Percent Auto 0.4 % (0-2); Eosinophils Absolute Auto 0.3 X10*3/uL (0.0-0.4); Eosinophils Percent Auto 3.5 % (0-4); Hematocrit 31.5 % (42.0-52.0); Hemoglobin 10.6 g/dl (14.0-18.0); Imm Gran Abs Auto 0.01 X10*3/uL (0.00-0.03); Imm Gran Pct Auto 0.1 % (0.0-0.4); Lymphocytes Absolute Auto 2.1 X10*3/uL (1.2-4.9); Mean Corpuscular HGB Conc 33.7 g/dl (31.0-36.0); Mean Corpuscular Hemoglobin 29.1 pg (27.0-33.0); Mean Corpuscular Volume 86.5 fL (80.0-98.0); Mean Platelet Volume 11.7 fL (9.4-12.4); Monocytes Absolute Auto 0.4 X10*3/uL (0.1-1.2); Monocytes Percent Auto 4.8 % (2-11); Neutrophils Absolute Auto 4.6 x10*3/uL (2.0-8.3); Neutrophils Percent Auto 63.2 % (45-73); Platelet Count 214 X10*3/uL (160-400); Red Blood Count 3.64 X10*6/uL (4.60-5.80); Red Cell Distribution Width 12.7 % (11.0-16.0); White Blood Count 7.3 X10*3/uL (4.8-10.8)
[2022-09-04] MEDS: Lactated Ringers 1,000 ML 100 ML IVCONT (06:35)
--- NOTE | 2022-09-04 06:58 | P.PNGS_ITS ---
Subjective Subjective Date of Service: 09/04/22 Patient reports: no new complaints and feels better Interval history: Patient reports interval improvement in his right lower quadrant pain and denies any new complaints such as chest pain, difficulty breathing or shortness of breath. Physical Exam Vital Signs: Vital Signs: Last Vital Signs Temp 98.5 F 09/04/22 03:45 Pulse 75 09/04/22 03:45 Resp 18 09/04/22 03:45 BP 133/64 09/04/22 03:45 Pulse Ox 97 09/04/22 03:45 O2 Del Method 09/04/22 03:45 BMI result Body Mass Index 49.0 On exam, the patient is nontoxic Patient is examined by Isis Stokes PA-C with me at the bedside. The patient's abdomen appears nontender in the presenting pain seems to have resolved. No peritoneal sign is appreciated Objective Data Active Medications Acetaminophen (Acetaminophen 325 Mg Tablet) 975 mg PO Q6H PRN PRN Reason: Pain, Mild (Pain Scale 1-3) Glucose (Glucose Gel 15 Gm Gel..Gram.) 15 gm PO Q15M PRN; Protocol PRN Reason: per Hypoglycemia Standing Ord. Heparin Sodium (Porcine) (Heparin Sodium,Porcine 5,000 Unit/Ml Vial) 5,000 unit SUBCUT Q12H [facility] Last Admin: 09/03/22 22:18 Dose: Not Given Documented By: MATILDA Non-Admin Reason: Patient Refused Lactated Ringer's (Lr) 1,000 mls @ 100 mls/hr IVCONT .Q10H [facility] Last Admin: 09/04/22 06:35 Dose: 100 mls/hr Documented By: MATILDA Piperacillin Sod/Tazobactam (Sod 3.375 gm/ Sodium Chloride) 50 mls @ 100 mls/hr IV Q6H [facility] Last Infusion: 09/04/22 04:50 Dose: 0 mls/hr Documented By: MATILDA Dextrose (D10) 250 mls @ 750 mls/hr IV Q15M PRN; Protocol PRN Reason: per Hypoglycemia Standing Ord. Insulin Human Lispro (Insulin Lispro 100 Unit/Ml 3 Ml Vial) 0 unit SUBCUT QIDACHS [facility]; Protocol Last Admin: 09/03/22 21:23 Dose: 6 unit Documented By: MATILDA Ondansetron HCl (Ondansetron Hcl 4 Mg/2 Ml Vial) 4 mg IVPUSH Q6H PRN PRN Reason: Nausea and Vomiting Pharmacy Consult (Consult Rx Perform Med Rec) 1 each MISCELLANE ONCE PRN PRN Reason: Consult order Sodium Chloride (0.9 % Sodium Chloride Flush 3 Ml Syringe) 3 ml IVFLUSH QSHIFT [facility] Last Admin: 09/03/22 22:18 Dose: 3 ml Documented By: MATILDA Labs 09/04/22 05:23 09/04/22 05:23 Labs: Laboratory Results - last 24 hr 09/03/22 09/03/22 09/03/22 08:27 08:27 09:33 MCV 86.4 MCH 28.5 MCHC 33.0 RDW 12.8 Plt Count 242 MPV 11.3 Immature Gran % (Auto) 0.2 Neut % (Auto) 68.7 Lymph % (Auto) 22.4 [place] % (Auto) 5.6 Eos % (Auto) 2.8 Baso % (Auto) 0.3 Lymph # (Auto) 2.5 [place] # (Auto) 0.6 Eos # (Auto) 0.3 Baso # (Auto) 0.0 Abs Immat Gran (auto) 0.02 Absolute Neuts (auto) 7.7 Absolute Nucleated RBC 0.000 Nucleated RBC % (auto) 0.0 Anion Gap 17 Estim Creat Clear Calc 51.1 Estimated GFR 31 POC Glucose Random Glucose 121 H Estimat Average Glucose Hemoglobin A1c % Calcium 8.8 Total Bilirubin 0.3 Direct Bilirubin < 0.2 AST 14 ALT 20 Alkaline Phosphatase 73 Total Protein 6.8 Albumin 3.9 Prealbumin 25.0 Lipase 14 Urine Color Yellow Urine Appearance Clear Urine pH 6.0 Ur Specific [place] 1.015 Urine Protein >=1000 (4+) H Urine Glucose (UA) 500 H Urine Ketones Negative Urine Blood Small (1+) H Urine Nitrite Negative Ur Leukocyte Esterase Negative Urine RBC 0-2 Urine WBC 0-5 Ur Squamous Epith Cells 3-5 Urine Bacteria None Seen Hyaline Casts 3-5 COVID-19 ([facility]) COVID-19 Clin Com 09/03/22 09/03/22 09/03/22 09:41 12:40 13:51 MCV MCH MCHC RDW Plt Count MPV Immature Gran % (Auto) Neut % (Auto) Lymph % (Auto) [place] % (Auto) Eos % (Auto) Baso % (Auto) Lymph # (Auto) [place] # (Auto) Eos # (Auto) Baso # (Auto) Abs Immat Gran (auto) Absolute Neuts (auto) Absolute Nucleated RBC Nucleated RBC % (auto) Anion Gap Estim Creat Clear Calc Estimated GFR POC Glucose 65 157 H Random Glucose Estimat Average Glucose 226 Hemoglobin A1c % 9.5 Calcium Total Bilirubin Direct Bilirubin AST ALT Alkaline Phosphatase Total Protein Albumin Prealbumin Lipase Urine Color Urine Appearance Urine pH Ur Specific [place] Urine Protein Urine Glucose (UA) Urine Ketones Urine Blood Urine Nitrite Ur Leukocyte Esterase Urine RBC Urine WBC Ur Squamous Epith Cells Urine Bacteria Hyaline Casts COVID-19 ([facility]) COVID-19 Clin Com 09/03/22 09/03/22 09/03/22 18:07 19:22 20:41 MCV MCH MCHC RDW Plt Count MPV Immature Gran % (Auto) Neut % (Auto) Lymph % (Auto) [place] % (Auto) Eos % (Auto) Baso % (Auto) Lymph # (Auto) [place] # (Auto) Eos # (Auto) Baso # (Auto) Abs Immat Gran (auto) Absolute Neuts (auto) Absolute Nucleated RBC Nucleated RBC % (auto) Anion Gap Estim Creat Clear Calc Estimated GFR POC Glucose 200 H 274 H Random Glucose Estimat Average Glucose Hemoglobin A1c % Calcium Total Bilirubin Direct Bilirubin AST ALT Alkaline Phosphatase Total Protein Albumin Prealbumin Lipase Urine Color Urine Appearance Urine pH Ur Specific [place] Urine Protein Urine Glucose (UA) Urine Ketones Urine Blood Urine Nitrite Ur Leukocyte Esterase Urine RBC Urine WBC Ur Squamous Epith Cells Urine Bacteria Hyaline Casts COVID-19 ([facility]) Negative COVID-19 Clin Com See Note 09/04/22 09/04/22 05:23 05:23 MCV 86.5 MCH 29.1 MCHC 33.7 RDW 12.7 Plt Count 214 MPV 11.7 Immature Gran % (Auto) 0.1 Neut % (Auto) 63.2 Lymph % (Auto) 28.0 [place] % (Auto) 4.8 Eos % (Auto) 3.5 Baso % (Auto) 0.4 Lymph # (Auto) 2.1 [place] # (Auto) 0.4 Eos # (Auto) 0.3 Baso # (Auto) 0.0 Abs Immat Gran (auto) 0.01 Absolute Neuts (auto) 4.6 Absolute Nucleated RBC 0.000 Nucleated RBC % (auto) 0.0 Anion Gap 12 Estim Creat Clear Calc 54.6 Estimated GFR 33 POC Glucose Random Glucose 265 H Estimat Average Glucose Hemoglobin A1c % Calcium 8.2 L D Total Bilirubin 0.6 Direct Bilirubin AST 12 ALT 16 Alkaline Phosphatase 69 Total Protein 5.8 L Albumin 3.3 L Prealbumin Lipase Urine Color Urine Appearance Urine pH Ur Specific [place] Urine Protein Urine Glucose (UA) Urine Ketones Urine Blood Urine Nitrite Ur Leukocyte Esterase Urine RBC Urine WBC Ur Squamous Epith Cells Urine Bacteria Hyaline Casts COVID-19 ([facility]) COVID-19 Clin Com Procedures Date of Service Date of Service: 09/04/22 Progress Note: A&P Assessment and plan (1) Acute appendicitis: Status: Acute (2) Acute on chronic renal insufficiency: Status: Acute (3) BMI 50.0-59.9, adult: Status: Acute (4) Kidney disease, chronic, stage III (GFR 30-59 ml/min): Status: Acute (5) Hypertension: Status: Acute (6) Poorly controlled type 2 diabetes mellitus: Status: Acute (7) Diabetes: Status: Acute Plan Advanced to clear liquid diet and stop Zosyn. Transition to Augmentin, 875 mg q.12hr If tolerated, will discharge on 1 week of p.o. Augmentin The importance of follow-up with his PCP regarding probable sleep apnea, poorly controlled diabetes, chronic kidney disease was all discussed and apparently understood. Time Spent With Patient Time: Total time managing care of this patient today ____ minutes. Quality Stroke Does the patient have a stroke diagnosis?: No VTE Prior VTE?: No VTE Risk Level:: Surgical - moderate VTE Device Contraindication: N/A - Device Ordered VTE Drug Contraindication: N/A - Med Ordered
[2022-09-04 07:34] VITALS: BP 163/91; PULSE 80; RESP 16; TEMP 36.2; O2SAT 99
[2022-09-04 07:43] LABS: Glucose, Whole Blood 321 mg/dL (60-115)
[2022-09-04] MEDS: Insulin Lispro 100 UNIT/ML 3 ML VIAL SUBCUT ×2 (07:58→11:40)
--- NOTE | 2022-09-04 08:28 | PM.DS ---
DS: Providers Provider Date of Service: 09/04/22 Date of admission: 09/03/22 10:28 Primary care physician: Constantino Andersen MD Consults: 09/03/22 09:07 Consult to General Surgery Stat Consulting [place] [facility] [facility] Reason for consultation: Appendicitis? Has provider been notified: Yes 09/03/22 10:31 Consult to Hospitalist Routine Consulting Provider: Hospitalist Reason For Exam: medical management DM, HTN, kidney disease DS: Diagnosis Discharge Diagnosis (1) Acute appendicitis: Status: Acute (2) Acute on chronic renal insufficiency: Status: Acute (3) BMI 50.0-59.9, adult: Status: Acute (4) Kidney disease, chronic, stage III (GFR 30-59 ml/min): Status: Acute (5) Hypertension: Status: Acute (6) Poorly controlled type 2 diabetes mellitus: Status: Acute (7) Diabetes: Status: Acute DS: Summary Hospital Course Hospital Course: See admitting H and P for full details. Briefly, this 37-year-old gentleman with poorly controlled type 1 diabetes, hemoglobin A1c of 9.5, chronic renal disease stage III, morbid obesity with a BMI of 55 and probable sleep apnea presented with a history consistent with early appendicitis and an equivocal CT. He had a leukocytosis and given his operative risk due to his comorbidities, I recommended admission to the hospital and beginning antibiotics. In 24 hours, the patient improved, was started on a clear liquid diet and discharged in improved condition. The importance of follow-up with his PCP regarding his comorbidities and the risk of and complications was discussed. Patient seemed understand. Time Spent with Patient Time attestation: Total time managing care of this patient today ____ minutes. Discharge coordination time: Greater than 30 minutes Quality: Safe Use of Opioids Does Pt have an Active Cancer Diagnosis on the Problem List?: No Quality: Stroke Does the patient have a stroke diagnosis?: No Physical Exam Vital Signs: Vital Signs: Last Vital Signs Temp 97.1 F 09/04/22 07:34 Pulse 80 09/04/22 07:34 Resp 16 09/04/22 07:34 BP 163/91 H 09/04/22 07:34 Pulse Ox 99 09/04/22 07:34 O2 Del Method 09/04/22 07:34 BMI result Body Mass Index 49.0 DS: Data Data Completed and Pending Labs on day of discharge: Laboratory Results - last 24 hr 09/03/22 09/03/22 09/03/22 08:27 08:27 09:33 WBC 11.3 H RBC 3.89 L Hgb 11.1 L Hct 33.6 L MCV 86.4 MCH 28.5 MCHC 33.0 RDW 12.8 Plt Count 242 MPV 11.3 Immature Gran % (Auto) 0.2 Neut % (Auto) 68.7 Lymph % (Auto) 22.4 [place] % (Auto) 5.6 Eos % (Auto) 2.8 Baso % (Auto) 0.3 Lymph # (Auto) 2.5 [place] # (Auto) 0.6 Eos # (Auto) 0.3 Baso # (Auto) 0.0 Abs Immat Gran (auto) 0.02 Absolute Neuts (auto) 7.7 Absolute Nucleated RBC 0.000 Nucleated RBC % (auto) 0.0 Sodium 142 Potassium 4.3 Chloride 108 Carbon Dioxide 21 L Anion Gap 17 BUN 30 H Creatinine 2.37 H Estim Creat Clear Calc 51.1 Estimated GFR 31 POC Glucose Random Glucose 121 H Estimat Average Glucose Hemoglobin A1c % Calcium 8.8 Total Bilirubin 0.3 Direct Bilirubin < 0.2 AST 14 ALT 20 Alkaline Phosphatase 73 Total Protein 6.8 Albumin 3.9 Prealbumin 25.0 Lipase 14 Urine Color Yellow Urine Appearance Clear Urine pH 6.0 Ur Specific [place] 1.015 Urine Protein >=1000 (4+) H Urine Glucose (UA) 500 H Urine Ketones Negative Urine Blood Small (1+) H Urine Nitrite Negative Ur Leukocyte Esterase Negative Urine RBC 0-2 Urine WBC 0-5 Ur Squamous Epith Cells 3-5 Urine Bacteria None Seen Hyaline Casts 3-5 COVID-19 ([facility]) COVID-19 Clin Com 09/03/22 09/03/22 09/03/22 09:41 12:40 13:51 WBC RBC Hgb Hct MCV MCH MCHC RDW Plt Count MPV Immature Gran % (Auto) Neut % (Auto) Lymph % (Auto) [place] % (Auto) Eos % (Auto) Baso % (Auto) Lymph # (Auto) [place] # (Auto) Eos # (Auto) Baso # (Auto) Abs Immat Gran (auto) Absolute Neuts (auto) Absolute Nucleated RBC Nucleated RBC % (auto) Sodium Potassium Chloride Carbon Dioxide Anion Gap BUN Creatinine Estim Creat Clear Calc Estimated GFR POC Glucose 65 157 H Random Glucose Estimat Average Glucose 226 Hemoglobin A1c % 9.5 Calcium Total Bilirubin Direct Bilirubin AST ALT Alkaline Phosphatase Total Protein Albumin Prealbumin Lipase Urine Color Urine Appearance Urine pH Ur Specific [place] Urine Protein Urine Glucose (UA) Urine Ketones Urine Blood Urine Nitrite Ur Leukocyte Esterase Urine RBC Urine WBC Ur Squamous Epith Cells Urine Bacteria Hyaline Casts COVID-19 ([facility]) COVID-19 Clin Com 09/03/22 09/03/22 09/03/22 18:07 19:22 20:41 WBC RBC Hgb Hct MCV MCH MCHC RDW Plt Count MPV Immature Gran % (Auto) Neut % (Auto) Lymph % (Auto) [place] % (Auto) Eos % (Auto) Baso % (Auto) Lymph # (Auto) [place] # (Auto) Eos # (Auto) Baso # (Auto) Abs Immat Gran (auto) Absolute Neuts (auto) Absolute Nucleated RBC Nucleated RBC % (auto) Sodium Potassium Chloride Carbon Dioxide Anion Gap BUN Creatinine Estim Creat Clear Calc Estimated GFR POC Glucose 200 H 274 H Random Glucose Estimat Average Glucose Hemoglobin A1c % Calcium Total Bilirubin Direct Bilirubin AST ALT Alkaline Phosphatase Total Protein Albumin Prealbumin Lipase Urine Color Urine Appearance Urine pH Ur Specific [place] Urine Protein Urine Glucose (UA) Urine Ketones Urine Blood Urine Nitrite Ur Leukocyte Esterase Urine RBC Urine WBC Ur Squamous Epith Cells Urine Bacteria Hyaline Casts COVID-19 ([facility]) Negative COVID-19 Clin Com See Note 09/04/22 09/04/22 09/04/22 05:23 05:23 07:38 WBC 7.3 RBC 3.64 L Hgb 10.6 L Hct 31.5 L MCV 86.5 MCH 29.1 MCHC 33.7 RDW 12.7 Plt Count 214 MPV 11.7 Immature Gran % (Auto) 0.1 Neut % (Auto) 63.2 Lymph % (Auto) 28.0 [place] % (Auto) 4.8 Eos % (Auto) 3.5 Baso % (Auto) 0.4 Lymph # (Auto) 2.1 [place] # (Auto) 0.4 Eos # (Auto) 0.3 Baso # (Auto) 0.0 Abs Immat Gran (auto) 0.01 Absolute Neuts (auto) 4.6 Absolute Nucleated RBC 0.000 Nucleated RBC % (auto) 0.0 Sodium 137 Potassium 4.5 Chloride 107 Carbon Dioxide 23 Anion Gap 12 BUN 26 H Creatinine 2.25 H Estim Creat Clear Calc 54.6 Estimated GFR 33 POC Glucose 321 H Random Glucose 265 H Estimat Average Glucose Hemoglobin A1c % Calcium 8.2 L D Total Bilirubin 0.6 Direct Bilirubin AST 12 ALT 16 Alkaline Phosphatase 69 Total Protein 5.8 L Albumin 3.3 L Prealbumin Lipase Urine Color Urine Appearance Urine pH Ur Specific [place] Urine Protein Urine Glucose (UA) Urine Ketones Urine Blood Urine Nitrite Ur Leukocyte Esterase Urine RBC Urine WBC Ur Squamous Epith Cells Urine Bacteria Hyaline Casts COVID-19 ([facility]) COVID-19 Clin Com Discharge Plan Discharge Anticipated Discharge Date/Time: 09/04/22 12:04 Patient Disposition: Home, Self-Care Discharge Diagnosis: possible appendicitis, poorly controlled diabetes, CKD3 Referrals: Constantino Andersen MD [Primary Care Provider] - 1 Week Rj De Paz MD [Physician] - 1 Week Discharge Medications: New amoxicillin-pot clavulanate 875-125 mg tablet 1 tab PO BID Qty: 14 0RF Continued insulin lispro 100 unit/mL insulin pen 0 - 20 unit subcut TID insulin glargine [Lantus Solostar U-100 Insulin] 100 unit/mL (3 mL) insulin pen 70 unit subcut DAILY Discharge Orders: Discharge Order (Routine); Ordered 09/04/22 Ordered By: Isis Stokes Diet: Diabetic diet Activity on Discharge: As tolerated Stand Alone Forms: Patient Portal Discharge page Care Plan Goals: Continue antibiotics Follow-up with your PCP because your diabetes is very poorly controlled Follow-up with her PCP because you need a sleep study to assess for obstructive sleep apnea Follow-up with your PCP because of your chronic kidney disease Health Concerns: Continue antibiotics Follow-up with your PCP because your diabetes is very poorly controlled Follow-up with her PCP because you need a sleep study to assess for obstructive sleep apnea Follow-up with your PCP because of your chronic kidney disease Plan of Treatment: Continue antibiotics Follow-up with your PCP because your diabetes is very poorly controlled Follow-up with her PCP because you need a sleep study to assess for obstructive sleep apnea Follow-up with your PCP because of your chronic kidney disease Assessment: Possible appendicitis Poorly controlled diabetes, morbid obesity with kidney disease, possible SHAY Advance your diet to a high protein(lean meat, fish and poultry), high fiber diet & avoid sugars, starches/carbohydrates (sweets, bread, pasta) and fats(fried food, cheese, gravy). You should have a dietary/nutrition consultation by your diabetic provider or PCP. You are admitted to [facility] because of abdominal pain and may have early appendicitis. You were started on antibiotics and have been given a prescription that must be completed. During your evaluation, you are noted to have poorly controlled diabetes which increases your risk for life-threatening infections and . You must call your primary care provider or diabetes doctor immediately to advise them of your recent hospitalization and need for better control of your diabetes in addition to a sleep study. Untreated sleep apnea can cause life-threatening complications of your heart and lungs. Call Dr. De Paz's office at [phone] to arrange follow-up for possible early appendicitis. Discharge Date/Time: 09/04/22 14:04
[2022-09-04] MEDS: Amoxicillin/Potassium Clav 875 MG TABLET PO (08:46)
[2022-09-04] MEDS: Insulin Glargine,Hum.rec.anlog 100 UNIT/ML 10 ML VIAL 55 UNIT SUBCUT (08:47)
--- NOTE | 2022-09-04 09:05 | P.PNIM_ITS ---
Subjective Subjective Date of Service: 09/04/22 Interval History: f/u on diabetes and HTN, admitted with pancreatitis interval history: feels better, Physical Exam Vital Signs: Vital Signs: Last Vital Signs Temp 97.1 F 09/04/22 07:34 Pulse 80 09/04/22 07:34 Resp 16 09/04/22 07:34 BP 163/91 H 09/04/22 07:34 Pulse Ox 99 09/04/22 07:34 O2 Del Method 09/04/22 07:34 BMI result Body Mass Index 49.0 Const: Other: General: AO X 3, no acute distress Resp: CTA bilateral CVS: S1,S2,RRR GI: +BS, NT, no distention Skin: No rash Neuro: motor grossly intact Psych: appropriate affect Objective Data Active Medications Acetaminophen (Acetaminophen 325 Mg Tablet) 975 mg PO Q6H PRN PRN Reason: Pain, Mild (Pain Scale 1-3) Amoxicillin/Clavulanate Potassium (Amoxicillin/Potassium Clav 875 Mg Tablet) 875 mg PO BID [facility] Last Admin: 09/04/22 08:46 Dose: 875 mg Documented By: BEBA Glucose (Glucose Gel 15 Gm Gel..Gram.) 15 gm PO Q15M PRN; Protocol PRN Reason: per Hypoglycemia Standing Ord. Heparin Sodium (Porcine) (Heparin Sodium,Porcine 5,000 Unit/Ml Vial) 5,000 unit SUBCUT Q12H [facility] Last Admin: 09/03/22 22:18 Dose: Not Given Documented By: MATILDA Non-Admin Reason: Patient Refused Lactated Ringer's (Lr) 1,000 mls @ 100 mls/hr IVCONT .Q10H [facility] Last Admin: 09/04/22 06:35 Dose: 100 mls/hr Documented By: MATILDA Dextrose (D10) 250 mls @ 750 mls/hr IV Q15M PRN; Protocol PRN Reason: per Hypoglycemia Standing Ord. Insulin Glargine (Insulin Glargine,Hum.Rec.Anlog 100 Unit/Ml 10 Ml Vial) 55 unit SUBCUT DAILY [facility] Last Admin: 09/04/22 08:47 Dose: 55 unit Documented By: BEBA Insulin Human Lispro (Insulin Lispro 100 Unit/Ml 3 Ml Vial) 0 unit SUBCUT QIDACHS [facility]; Protocol Last Admin: 09/04/22 07:58 Dose: 8 unit Documented By: BEBA Ondansetron HCl (Ondansetron Hcl 4 Mg/2 Ml Vial) 4 mg IVPUSH Q6H PRN PRN Reason: Nausea and Vomiting Pharmacy Consult (Consult Rx Perform Med Rec) 1 each MISCELLANE ONCE PRN PRN Reason: Consult order Sodium Chloride (0.9 % Sodium Chloride Flush 3 Ml Syringe) 3 ml IVFLUSH QSHIFT [facility] Last Admin: 09/04/22 07:59 Dose: Not Given Documented By: BEBA Non-Admin Reason: IV Running Labs 09/04/22 05:23 09/04/22 05:23 Labs: Laboratory Results - last 24 hr 09/03/22 09/03/22 09/03/22 08:27 09:33 09:41 MCV MCH MCHC RDW Plt Count MPV Immature Gran % (Auto) Neut % (Auto) Lymph % (Auto) [place] % (Auto) Eos % (Auto) Baso % (Auto) Lymph # (Auto) [place] # (Auto) Eos # (Auto) Baso # (Auto) Abs Immat Gran (auto) Absolute Neuts (auto) Absolute Nucleated RBC Nucleated RBC % (auto) Anion Gap Estim Creat Clear Calc Estimated GFR POC Glucose Random Glucose Estimat Average Glucose 226 Hemoglobin A1c % 9.5 Calcium Total Bilirubin AST ALT Alkaline Phosphatase Total Protein Albumin Prealbumin 25.0 Urine Color Yellow Urine Appearance Clear Urine pH 6.0 Ur Specific [place] 1.015 Urine Protein >=1000 (4+) H Urine Glucose (UA) 500 H Urine Ketones Negative Urine Blood Small (1+) H Urine Nitrite Negative Ur Leukocyte Esterase Negative Urine RBC 0-2 Urine WBC 0-5 Ur Squamous Epith Cells 3-5 Urine Bacteria None Seen Hyaline Casts 3-5 COVID-19 ([facility]) COVID-19 Clin Com 09/03/22 09/03/22 09/03/22 12:40 13:51 18:07 MCV MCH MCHC RDW Plt Count MPV Immature Gran % (Auto) Neut % (Auto) Lymph % (Auto) [place] % (Auto) Eos % (Auto) Baso % (Auto) Lymph # (Auto) [place] # (Auto) Eos # (Auto) Baso # (Auto) Abs Immat Gran (auto) Absolute Neuts (auto) Absolute Nucleated RBC Nucleated RBC % (auto) Anion Gap Estim Creat Clear Calc Estimated GFR POC Glucose 65 157 H 200 H Random Glucose Estimat Average Glucose Hemoglobin A1c % Calcium Total Bilirubin AST ALT Alkaline Phosphatase Total Protein Albumin Prealbumin Urine Color Urine Appearance Urine pH Ur Specific [place] Urine Protein Urine Glucose (UA) Urine Ketones Urine Blood Urine Nitrite Ur Leukocyte Esterase Urine RBC Urine WBC Ur Squamous Epith Cells Urine Bacteria Hyaline Casts COVID-19 ([facility]) COVID-19 Clin Com 09/03/22 09/03/22 09/04/22 19:22 20:41 05:23 MCV 86.5 MCH 29.1 MCHC 33.7 RDW 12.7 Plt Count 214 MPV 11.7 Immature Gran % (Auto) 0.1 Neut % (Auto) 63.2 Lymph % (Auto) 28.0 [place] % (Auto) 4.8 Eos % (Auto) 3.5 Baso % (Auto) 0.4 Lymph # (Auto) 2.1 [place] # (Auto) 0.4 Eos # (Auto) 0.3 Baso # (Auto) 0.0 Abs Immat Gran (auto) 0.01 Absolute Neuts (auto) 4.6 Absolute Nucleated RBC 0.000 Nucleated RBC % (auto) 0.0 Anion Gap Estim Creat Clear Calc Estimated GFR POC Glucose 274 H Random Glucose Estimat Average Glucose Hemoglobin A1c % Calcium Total Bilirubin AST ALT Alkaline Phosphatase Total Protein Albumin Prealbumin Urine Color Urine Appearance Urine pH Ur Specific [place] Urine Protein Urine Glucose (UA) Urine Ketones Urine Blood Urine Nitrite Ur Leukocyte Esterase Urine RBC Urine WBC Ur Squamous Epith Cells Urine Bacteria Hyaline Casts COVID-19 ([facility]) Negative COVID-19 Clin Com See Note 09/04/22 09/04/22 05:23 07:38 MCV MCH MCHC RDW Plt Count MPV Immature Gran % (Auto) Neut % (Auto) Lymph % (Auto) [place] % (Auto) Eos % (Auto) Baso % (Auto) Lymph # (Auto) [place] # (Auto) Eos # (Auto) Baso # (Auto) Abs Immat Gran (auto) Absolute Neuts (auto) Absolute Nucleated RBC Nucleated RBC % (auto) Anion Gap 12 Estim Creat Clear Calc 54.6 Estimated GFR 33 POC Glucose 321 H Random Glucose 265 H Estimat Average Glucose Hemoglobin A1c % Calcium 8.2 L D Total Bilirubin 0.6 AST 12 ALT 16 Alkaline Phosphatase 69 Total Protein 5.8 L Albumin 3.3 L Prealbumin Urine Color Urine Appearance Urine pH Ur Specific [place] Urine Protein Urine Glucose (UA) Urine Ketones Urine Blood Urine Nitrite Ur Leukocyte Esterase Urine RBC Urine WBC Ur Squamous Epith Cells Urine Bacteria Hyaline Casts COVID-19 ([facility]) COVID-19 Clin Com Assessment and Plan (1) Acute appendicitis: Status: Acute (2) Hypertension: Status: Acute (3) Diabetes: Status: Acute Plan 37-year-old male with history of poorly controlled type 1 diabetes, hypertension, and diabetic nephropathy with CKD stage 3 admitted to general surgery for management of acute appendicitis with consult placed to Hospital Medicine for medical management. 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 Quality Stroke Does the patient have a stroke diagnosis?: No VTE Prior VTE?: No VTE Risk Level:: Surgical - moderate VTE Device Contraindication: N/A - Device Ordered VTE Drug Contraindication: N/A - Med Ordered
[2022-09-04] MEDS: Heparin Sodium,Porcine 5,000 UNIT/ML VIAL 5000 UNIT SUBCUT (10:44)
[2022-09-04 11:33] LABS: Glucose, Whole Blood 286 mg/dL (60-115)
--- NOTE | 2022-09-04 13:19 | MHC.CM.PN ---
pt dcd home no skilled servceis orderd by
== END 2022-09-04 14:04 | disposition home or self-care (01) | DRG 254 ==
LOC: HO.ED 07:22 → HO.EDOVER 10:36 → HO.S3 19:55
PROVIDERS: Admitting Provider Surgery; Emergency Provider Emergency Medicine; PCP Internal Medicine; Visit Provider Surgery
DX: K35.80 Unspecified acute appendicitis (principal); E10.22 Type 1 diabetes mellitus with diabetic chronic kidney disease; Z68.43 Body mass index [BMI] 50.0-59.9, adult; I12.9 Hypertensive chronic kidney disease with stage 1 through stage 4 chronic kidney disease, or unspecified chronic kidney disease; N18.30 Chronic kidney disease, stage 3 unspecified; E10.65 Type 1 diabetes mellitus with hyperglycemia; E66.01 Morbid (severe) obesity due to excess calories; G47.30 Sleep apnea, unspecified; Z20.822 Contact with and (suspected) exposure to COVID-19
CPT/HCPCS: 36415; 74176; 80048; 80053; 80076; 81001; 82947; 83036; 83690; 84134; 85025; 87635; 96361; 96374; 96375; 99221; 99285; J1643; J1885; J2270; J2543

== ENCOUNTER 2023-07-11 18:48 | Emergency (ER) | payer OTHER, SELFPAY ==
[2023-07-11 19:22] VITALS: BP 152/83; PULSE 85; RESP 18; TEMP 37; O2SAT 97; BMI 38.7
--- NOTE | 2023-07-11 19:23 | ED_ITS ---
HPI - Back Pain/Injury General Chief Complaint: Back Pain/Injury Stated Complaint: Lower back pain Time Seen by Provider: 07/11/23 19:33 Source: patient Mode of arrival: ambulatory Limitations: no limitations History of Present Illness HPI Narrative: 38-year-old male presenting to the ER with complaints of lower back pain. Reports that he had a similar pain to this last year after he fell off of a trailer. He reports he believes it is muscular related. He has a history of kidney stones although he reports this does not feel like his kidney stones. Denies: Trauma; FCS; Rash; H/A; CP; SOB; Neck Pain; Abd pain, N/V/D; UTI sx; Hematuria; Bowel/Bladder Incont; Focal weakness; Numbness; Radiation; Extr pain or swelling MD elicited complaint: back pain Pertinent past history: prior back pain Onset (ago): day(s) (For the past 2 3 days) Timing: constant Severity: moderate Similar Symptoms Previously: Yes Quality: burning Location: lumbar spine Radiation: none Exacerbating factors: movement, sitting upright, walking and lifting Relieving factors: none Context: unknown Associated symptoms: denies other symptoms Work related injury: No Related Data Home Medications Medication Instructions Recorded Confirmed insulin glargine 100 unit/mL (3 70 unit subcut DAILY 09/03/22 09/03/22 mL) subcutaneous pen (Lantus Solostar U-100 Insulin) insulin lispro 100 unit/mL 0 - 20 unit subcut TID 09/03/22 09/03/22 subcutaneous pen Previous Rx's Medication Instructions Recorded amoxicillin 875 mg-potassium 1 tab PO BID #14 tabs 09/04/22 clavulanate 125 mg tablet cyclobenzaprine 10 mg tablet 10 mg PO Q8H #10 tabs 07/11/23 naproxen 500 mg tablet 500 mg PO BID PRN pain #10 tabs 07/11/23 oxycodone 5 mg tablet 5 mg PO Q6H PRN pain #14 tabs 07/11/23 Allergies Allergy/AdvReac Type Severity Reaction Status Date / Time No Known Allergies Allergy Verified 07/11/23 19:22 [No Known Allergies*] Review of Systems Review of Systems: Constitutional : No trauma, No Weight loss, No Fever, No Chills, ENT/Mouth : No Hearing loss, No Ear Pain, No Nasal Congestion, No Sinus Pain, No Hoarseness, No sore throat, No Rhinorrhea, No Swallowing Difficulty Cardiovascular : No Chest Pain, No SOB Respiratory : No Cough, No Dyspnea Gastrointestinal : No Nausea, No Vomiting, No Diarrhea, No abdominal Pain, No Hematochezia, No Melena Genitourinary : No Dysuria, No Urinary Frequency, No Hematuria, No Urinary or Bowel Incontinence/retention Musculoskeletal : + Back pain, No neck pain, No joint stiffness, No joint swelling Skin : No Skin Lesions, No rash or signs of infection Neuro : No Weakness, No radiation, No Numbness, No Paresthesias, No headache, no loss of bowel or bladder incontinence, no saddle anesthesia Denies history of IV drug usage. Yes all other systems are reviewed and are negative PMFSH Past Medical History Attestation statement: The following information was validated with the patient. Source: old records reviewed and nursing notes reviewed Onset Date is defined in the Problem List Problems that require an onset date and time if occurred within 24 hrs of arrival to the ED Aortic Dissection and Rupture; Neurologic impairment; Cardiopulmonary Arrest; Endotracheal Intubation; Insertion or Replacement of Mechanical Circulatory Assist Device Medical History Hypertension Kidney disease, chronic, stage III (GFR 30-59 ml/min) Diabetes Surgical History H/O neck surgery Social History Social History Household Members: Family Housing: House Do you presently have visiting nurse or other home services: No Alcohol intake: never Patient Tobacco Use Status: Never used Tobacco Advance Directives: No Advance Directives Information Provided: No service: No Current occupational status: employed Physical Exam Vital Signs: Vital Signs: Last Vital Signs Temp 98.6 F 07/11/23 19:22 Pulse 85 07/11/23 19:22 Resp 18 07/11/23 19:22 BP 152/83 H 07/11/23 19:22 Pulse Ox 97 07/11/23 19:22 O2 Del Method Room Air 07/11/23 19:22 BMI result Body Mass Index 38.7 vital signs have been reviewed as normal and appeared to be correct. Blood pressure normal. Heart rate normal. Respiration rate normal. Temperature normal. Oxygen saturation normal. Appearance: Alert. Oriented X3. No acute distress. Head: Normal external exam. Normocephalic. Atraumatic. No Nuno signs noted. No raccoon eyes noted Eyes: PERRLA. EOMI. Conjunctiva and sclera normal. Eyelids normal. ENT: EAC normal. TM's Normal. Pharynx normal. Uvula midline. Moist mucous membranes. No trismus noted. No drooling noted. No muffled voice noted. Neck: Normal inspection. Neck supple. FROM. No adenopathy. Thyroid Normal. No meningeal signs. No neck mass noted. CVS: Normal heart rate and rhythm. Heart sound normal. No murmurs noted. Pulses normal throughout. Respiratory: No respiratory distress. Painless inspiration. Breath sounds normal. No wheezes/rales/rhonchi noted. Chest nontender. No accessory muscle usage noted or decreased air movement noted. Abdomen: Soft and nontender. Bowel sounds normal in all 4 quadrants. No distention noted. No organomegaly noted. No visible injury noted. Back: No CVA tenderness. Full range of motion noted. No obvious deformities, or edema. Mild para-spinal muscular tenderness from lumbar region to coccyx. Full ROM in back and lower extremities. 5/5 strength hip extension/flexion, abduction, adduction. Mild Lumbar pain with hip flexion against resistance. Straight leg raise test negative on right; Straight leg raise test negative on left; Reflexes normal ankle and knee bilaterally; EHL motor strength normal bilaterally. No rashes/lesion/induration/fluctuance or signs infection noted. Skin: Skin warm and dry. Normal skin color. Normal skin turgor. No vanda hes/lesions/lacerations noted. Extremities: No lower extremity edema. Extremities exhibit normal range of motion. Extremities nontender. Neuro: Oriented X 3. No motor deficit. No sensory deficit. Reflexes normal. Patient has a normal steady gait. Course Course Course Narrative: Pt c likely muscular pain, but could be herniated disc. Neuro exam shows no deficits. Not c/w AAA/epidural abscess/dissection.No high risk Hx (Incont, fever, immunosupp, recent surgery/LP, coag, signif trauma, wt loss, puls mass, hx/o Ca, TB, or IVDU) to warrant MRI/CT today. Not c/w Pyelo/UTI/kidney stone/spinal fx. Not cauda equina syndrome. Imaging not currently indicated. DC c meds and f/u. Medical Decision Making Medical Decision Making MDM Narrative: see course Differential Diagnosis Differential Diagnoses: The differential diagnosis associated with the presentation includes see course Independent Historian Clinical information obtained from an independent historian. History obtained from or confirmed by: Other (Patient, medical records and nurse's notes) External Record Review External record reviewed: Inpatient record, Office record, Outpatient record, Prior outpatient labs, Prior outpatient radiology, Primary care record and Outside ED record Prescription Management I considered prescription management with: Pain Medication Social Determinants Patient?s care significantly limited by Social Determinants of Health including: Other Social Determinant of Health Discharge Plan Discharge Clinical Impression: Lumbar strain Patient Disposition: Home, Self-Care Instructions: Low Back Strain (ED), Lower Back Exercises (ED) Prescriptions: New naproxen 500 mg tablet 500 mg PO BID PRN (Reason: pain) Qty: 10 0RF cyclobenzaprine 10 mg tablet 10 mg PO Q8H Qty: 10 0RF oxycodone 5 mg tablet 5 mg PO Q6H PRN (Reason: pain) Qty: 14 0RF Rx Instructions: Partial Fill upon patient request. No Action insulin lispro 100 unit/mL insulin pen 0 - 20 unit subcut TID insulin glargine [Lantus Solostar U-100 Insulin] 100 unit/mL (3 mL) insulin pen 70 unit subcut DAILY amoxicillin-pot clavulanate 875-125 mg tablet 1 tab PO BID Qty: 14 0RF Referrals: Constantino Andersen MD [Primary Care Provider] - 1 day
== END 2023-07-11 19:44 | disposition home or self-care (01) ==
PROVIDERS: Emergency Provider Emergency Medicine Emergency Medical Services; PCP Internal Medicine
DX: S39.012A Strain of muscle, fascia and tendon of lower back, initial encounter (principal); W17.89XA Other fall from one level to another, initial encounter; Y93.89 Activity, other specified; Y92.818 Other transport vehicle as the place of occurrence of the external cause; Y99.9 Unspecified external cause status
CPT/HCPCS: 99282; 99283

== ENCOUNTER 2024-03-29 10:20 | Emergency (ER) | payer OTHER, SELFPAY ==
[2024-03-29 10:50] VITALS: BP 198/74; PULSE 106; RESP 18; TEMP 36.6; O2SAT 100; BMI 38.0
--- NOTE | 2024-03-29 10:50 | ED_ITS ---
HPI - Eye Problem General Chief complaint: Eye Problems Stated complaint: r eye issue Related Data Home Medications ?Medication ?Instructions ?Recorded ?Confirmed insulin glargine 100 unit/mL (3 70 unit subcut DAILY 09/03/22 09/03/22 mL) subcutaneous pen (Lantus Solostar U-100 Insulin) insulin lispro 100 unit/mL 0 - 20 unit subcut TID 09/03/22 09/03/22 subcutaneous pen Previous Rx's ?Medication ?Instructions ?Recorded amoxicillin 875 mg-potassium 1 tab PO BID #14 tabs 09/04/22 clavulanate 125 mg tablet cyclobenzaprine 10 mg tablet 10 mg PO Q8H #10 tabs 07/11/23 naproxen 500 mg tablet 500 mg PO BID PRN pain #10 tabs 07/11/23 oxycodone 5 mg tablet 5 mg PO Q6H PRN pain #14 tabs 07/11/23 Allergies Allergy/AdvReac Type Severity Reaction Status Date / Time No Known Allergies Allergy Verified 03/29/24 10:51 [No Known Allergies*] [facility] Past Medical History Medical History Hypertension Kidney disease, chronic, stage III (GFR 30-59 ml/min) Diabetes Surgical History H/O neck surgery Social History Social History Household Members: Family Housing: House Do you presently have visiting nurse or other home services: No Alcohol intake: never Patient Tobacco Use Status: Never used Tobacco Advance Directives: No Advance Directives Information Provided: No service: No Current occupational status: employed Physical Exam Vital Signs: Vital Signs: Last Vital Signs Temp 98 F 03/29/24 10:50 Pulse 106 H 03/29/24 10:50 Resp 18 03/29/24 10:50 BP 198/74 H 03/29/24 10:50 Pulse Ox 100 03/29/24 10:50 O2 Del Method Room Air 03/29/24 10:50 BMI result Body Mass Index 38.0 Course Course Course Narrative: This is a Rapid Medical Examination (RME) performed by Leighton Benitez PA-C in triage. Full HPI, ROS, assessment and treatment plan per primary provider in the Main ED. 38 yo male with history of DM, HTN, CKD presnets to the ER for evaluation of a black smudge on the right eye for the last 4 days. history of cataract in the right eye as a kid when a baseball hit him in the eye. 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 normal inspection of the right periorbital region. PERRLA. EOMI. no swelling of the upper or lower lids. Plan: eye exam in [facility] [place] [place] Reevaluation(s) Reevaluation #1: patient eloped prior to completing treatment Discharge Plan Discharge Clinical Impression: Alteration in vision Patient Disposition: Left W/O Completing Treatment Prescriptions: No Action insulin lispro 100 unit/mL insulin pen 0 - 20 unit subcut TID insulin glargine [Lantus Solostar U-100 Insulin] 100 unit/mL (3 mL) insulin pen 70 unit subcut DAILY amoxicillin-pot clavulanate 875-125 mg tablet 1 tab PO BID Qty: 14 0RF naproxen 500 mg tablet 500 mg PO BID PRN (Reason: pain) Qty: 10 0RF cyclobenzaprine 10 mg tablet 10 mg PO Q8H Qty: 10 0RF oxycodone 5 mg tablet 5 mg PO Q6H PRN (Reason: pain) Qty: 14 0RF Rx Instructions: Partial Fill upon patient request. Discharge Date/Time: 03/29/24 17:50
== END 2024-03-29 17:50 | disposition left against medical advice (07) ==
PROVIDERS: Emergency Provider Emergency Medicine; PCP Internal Medicine
DX: H53.8 Other visual disturbances (principal); H57.11 Ocular pain, right eye; E11.22 Type 2 diabetes mellitus with diabetic chronic kidney disease; E11.65 Type 2 diabetes mellitus with hyperglycemia; I12.9 Hypertensive chronic kidney disease with stage 1 through stage 4 chronic kidney disease, or unspecified chronic kidney disease; N18.30 Chronic kidney disease, stage 3 unspecified
CPT/HCPCS: 99281

== ENCOUNTER 2024-04-26 07:21 | Emergency (ER) | payer OTHER, SELFPAY ==
--- NOTE | ~2024-04-26 | XR_ITS ---
EXAMINATION: XR CHEST CLINICAL INFORMATION: Chest pain COMPARISON: Chest x-ray June 04, 2021 TECHNIQUE: 2 views of the chest were obtained. FINDINGS: Cardiac silhouette is normal in size. The lungs are well aerated. There is no lobar consolidation. No pleural effusion or pneumothorax. No acute osseous abnormality. XR/XR chest 2V IMPRESSION: No acute pulmonary pathology. Electronically signed by: Garrett Aparicio MD 04/26/2024 09:56 AM [facility] [place]
--- NOTE | 2024-04-26 07:23 | ECG_ITS ---
Test Reason : chest pain Blood Pressure : / mmHG Vent. Rate : 094 BPM Atrial Rate : 094 BPM P-R Int : 162 ms QRS Dur : 072 ms QT Int : 336 ms P-R-T Axes : 046 038 075 degrees QTc Int : 420 ms Normal sinus rhythm Normal ECG When compared with ECG of 04-JUN-2021 17:46, No significant change was found Referred By: Generic ED Physician Electronically Signed By:ISMAEL PARIKH MD
--- NOTE | 2024-04-26 07:43 | ED_ITS ---
HPI - Chest Pain General Chief Complaint: Chest Pain Stated Complaint: chest pain Time Seen by Provider: 04/26/24 07:42 Source: patient Mode of arrival: ambulatory Limitations: no limitations History of Present Illness HPI narrative: 38-year-old male presents emergency room complaining of epigastric versus chest pain. He states he did take Pepcid yesterday with resolution of the symptoms pain has been intermittent constant finally did resolve after the Pepcid a came back after he ate. He denies any fevers chills cough or shortness breath. Does have history of acid reflux he also is diabetic with stage 3 kidney disease and hypertension. He has not taken anything for his acid reflux. MD complaint: chest pain Related Data Home Medications ?Medication ?Instructions ?Recorded ?Confirmed insulin glargine 100 unit/mL (3 70 unit subcut DAILY 09/03/22 09/03/22 mL) subcutaneous pen (Lantus Solostar U-100 Insulin) insulin lispro 100 unit/mL 0 - 20 unit subcut TID 09/03/22 09/03/22 subcutaneous pen Previous Rx's ?Medication ?Instructions ?Recorded amoxicillin 875 mg-potassium 1 tab PO BID #14 tabs 09/04/22 clavulanate 125 mg tablet cyclobenzaprine 10 mg tablet 10 mg PO Q8H #10 tabs 07/11/23 naproxen 500 mg tablet 500 mg PO BID PRN pain #10 tabs 07/11/23 oxycodone 5 mg tablet 5 mg PO Q6H PRN pain #14 tabs 07/11/23 aluminum-mag hydroxide-simethicone 10 ml PO Q6H PRN indigestion 04/26/24 200 mg-200 mg-20 mg/5 mL oral susp #3,000 mL (Maalox Advanced) famotidine 20 mg tablet (Pepcid) 20 mg PO BID PRN acid reflux #60 04/26/24 tabs omeprazole 20 mg capsule,delayed 20 mg PO DAILY #90 caps 04/26/24 release Allergies Allergy/AdvReac Type Severity Reaction Status Date / Time No Known Allergies Allergy Verified 04/26/24 07:47 [No Known Allergies*] Review of Systems 2 Review of Systems: Review of systems: General: Patient denies any fever chills recent illness or falls Musculoskeletal: Denies back pain or body aches or other injuries HEENT: denies headache, runny nose, ear pain Respiratory: denies shortness of breath, cough Cardiovascular: no chest pain or palpitations : denies dysuria, frequency Abdomen: Epigastric abdominal pain no nausea vomiting denies any other abdominal pain Extremities: no swelling, no pain Skin: no diaphoresis Yes all other systems are reviewed and are negative [facility] Past Medical History Medical History Hypertension Kidney disease, chronic, stage III (GFR 30-59 ml/min) Diabetes Surgical History H/O neck surgery Social History Social History Household Members: Family Housing: House Do you presently have visiting nurse or other home services: No Alcohol intake: never Patient Tobacco Use Status: Never used Tobacco Advance Directives: No Advance Directives Information Provided: Yes service: No Current occupational status: employed Physical Exam 2 Vital Signs: Vital Signs: Last Vital Signs Temp 98.6 F 04/26/24 07:46 Pulse 89 04/26/24 07:46 Resp 22 H 04/26/24 07:46 BP 172/77 H 04/26/24 07:46 Pulse Ox 98 04/26/24 07:46 O2 Del Method Room Air 04/26/24 07:46 BMI result Body Mass Index 38.7 General: Well-appearing well-nourished in no signs of distress HEENT: Normocephalic atraumatic Neck: No signs of JVD, no masses no tenderness or lymphadenopathy Cardiovascular: Regular rate and rhythm Respiratory: Clear to auscultation bilaterally Abdomen: Soft nontender no masses pain is not reproducible to the epigastric area negative Walker's sent Extremities: Normal pedal pulses no signs of edema Skin: Dry warm no rashes Back: No tenderness full ROM Course Course Course Narrative: Patient sleeping comfortable in the room labs and XR are all normal. Kidney function is worse than previous. I will give some gatorade currently in a shortage has known kidney disease and needs to follow up. Educated on hydration. Patient happy with the plan to go home. Medications Administered Discontinued Medications Generic Name Dose Route Start Last Admin Trade Name Freq PRN Reason Stop Dose Admin Al Hydroxide/Mg Hydroxide 30 ml 04/26/24 07:50 04/26/24 08:19 Magnesium Hydrox/Alum Hydrox 30 Ml Oral.Susp PO 04/26/24 07:51 30 ml ONCE ONE Administration Famotidine 20 mg 04/26/24 07:50 04/26/24 08:19 Famotidine 20 Mg Tablet PO 04/26/24 07:51 20 mg ONCE ONE Administration Medical Decision Making Medical Decision Making [facility] Narrative: I do feel like this is mostly chest pain the be worked up as a rate ACS rule out I do not the patient is tachycardic or hypoxic there is no signs of PE patient does not have any respiratory complaints to suggest this is pneumonia x-ray was performed does show pneumonia patient has nontoxic appearance esophageal rupture is reproducible I do feel this is musculoskeletal there was no signs of ST depression spot extent or any other signs of pericarditis on the workup. His belly exam is benign I do not think this is acute surgical abdomen or cholecystitis this seems like it is most acid reflux I will treat the patient with Maalox and Pepcid Differential Diagnosis Differential Diagnoses: The differential diagnosis associated with the presentation includes ACS pneumonia esophageal rupture PE pericarditis cardiac tamponade cholecystitis and acid reflux Admission/Observation Consideration of admission/observation: Escalation of care including admission/observation considered Lab Data [facility] Lab Attestation statement: I reviewed the patient's lab results. 04/26/24 08:11 04/26/24 08:11 Labs: Lab Results 04/26/24 Range/Units 08:11 WBC 10.5 (4.8-10.8) X10*3/uL RBC 3.71 L (4.60-5.80) X10*6/uL Hgb 11.0 L (14.0-18.0) g/dl Hct 31.9 L (42.0-52.0) % MCV 86.0 (80.0-98.0) fL MCH 29.6 (27.0-33.0) pg MCHC 34.5 (31.0-36.0) g/dl RDW 13.2 (11.0-16.0) % Plt Count 245 (160-400) X10*3/uL MPV 10.3 (9.4-12.4) fL Immature Gran % (Auto) 0.2 (0.0-0.4) % Neut % (Auto) 70.6 (45-73) % Lymph % (Auto) 20.9 (20-40) % [place] % (Auto) 5.2 (2-11) % Eos % (Auto) 2.7 (0-4) % Baso % (Auto) 0.4 (0-2) % Lymph # (Auto) 2.2 (1.2-4.9) X10*3/uL [place] # (Auto) 0.5 (0.1-1.2) X10*3/uL Eos # (Auto) 0.3 (0.0-0.4) X10*3/uL Baso # (Auto) 0.0 (0.0-0.2) X10*3/uL Abs Immat Gran (auto) 0.02 (0.00-0.03) X10*3/uL Absolute Neuts (auto) 7.4 (2.0-8.3) x10*3/uL Absolute Nucleated RBC 0.000 (0.0-0.012) X10*3/uL Nucleated RBC % (auto) 0.0 (0.0-0.2) /100WBC Sodium 139 (135-145) mmol/L Potassium 4.1 (3.3-5.1) mmol/L Chloride 104 (96-108) mmol/L Carbon Dioxide 26 (22-29) mmol/L Anion Gap 13 (12-20) BUN 28 H (9-16) mg/dL Creatinine 3.13 H (0.5-1.4) mg/dL Estim Creat Clear Calc 42.8 Estimated GFR 23 Random Glucose 139 H (60-115) mg/dL Calcium 10.0 D (8.4-10.2) mg/dL Total Bilirubin 0.3 (0.0-1.0) mg/dL Direct Bilirubin 0.1 (0.0-0.5) mg/dL AST 18 (5-37) U/L ALT 18 (0-40) U/L Alkaline Phosphatase 73 (39-117) U/L Troponin I High Sens 6.8 (<3.5-35.0) ng/L Total Protein 7.7 (6.5-8.0) g/dL Albumin 4.0 (3.5-5.0) g/dL Lipase 13 (8-78) U/L Independent Interpretation I performed an independent interpretation of an: EKG and Plain X-Ray Interpretation: EKG rate 94 normal sinus rhythm normal intervals no signs of ischemia no previous for comparison interpreted by me External Record Review External record reviewed: Inpatient record and Office record Discharge Plan Discharge Clinical Impression: Chest pain, Acute epigastric pain Patient Disposition: Home, Self-Care Instructions: Chest Pain (DC), Epigastric Pain (ED) Additional Instructions: You were seen today for chest pain we did feel this is more likely related gastritis please call follow up with your doctor if you have any worsening symptoms please return to the ER. We are sending home with omeprazole which went take once a day as change the chemistry anything in her stomach decrease acid secretion. He also take Pepcid as needed for pain as well as twice a day. Prescriptions: New alum-mag hydroxide-simeth [Maalox Advanced] 200-200-20 mg/5 mL suspension 10 ml PO Q6H PRN (Reason: indigestion) Qty: 3000 0RF famotidine [Pepcid] 20 mg tablet 20 mg PO BID PRN (Reason: acid reflux) Qty: 60 0RF omeprazole 20 mg capsule,delayed release(DR/EC) 20 mg PO DAILY Qty: 90 0RF No Action insulin lispro 100 unit/mL insulin pen 0 - 20 unit subcut TID insulin glargine [Lantus Solostar U-100 Insulin] 100 unit/mL (3 mL) insulin pen 70 unit subcut DAILY amoxicillin-pot clavulanate 875-125 mg tablet 1 tab PO BID Qty: 14 0RF naproxen 500 mg tablet 500 mg PO BID PRN (Reason: pain) Qty: 10 0RF cyclobenzaprine 10 mg tablet 10 mg PO Q8H Qty: 10 0RF oxycodone 5 mg tablet 5 mg PO Q6H PRN (Reason: pain) Qty: 14 0RF Rx Instructions: Partial Fill upon patient request. Print Language: Kinyarwanda
[2024-04-26 07:46] VITALS: BP 172/77; PULSE 89; RESP 22; TEMP 37; O2SAT 98; BMI 38.7
[2024-04-26 08:14] LABS: MANUAL DIFF FLAG NO
[2024-04-26 08:17] LABS: Basophils Percent Auto 0.4 % (0-2); Eosinophils Absolute Auto 0.3 X10*3/uL (0.0-0.4); Eosinophils Percent Auto 2.7 % (0-4); Hematocrit 31.9 % (42.0-52.0); Imm Gran Abs Auto 0.02 X10*3/uL (0.00-0.03); Imm Gran Pct Auto 0.2 % (0.0-0.4); Lymphocytes Absolute Auto 2.2 X10*3/uL (1.2-4.9); Lymphocytes Percent Auto 20.9 % (20-40); Mean Corpuscular HGB Conc 34.5 g/dl (31.0-36.0); Mean Corpuscular Hemoglobin 29.6 pg (27.0-33.0); Mean Platelet Volume 10.3 fL (9.4-12.4); Monocytes Absolute Auto 0.5 X10*3/uL (0.1-1.2); Monocytes Percent Auto 5.2 % (2-11); Neutrophils Absolute Auto 7.4 x10*3/uL (2.0-8.3); Neutrophils Percent Auto 70.6 % (45-73); Platelet Count 245 X10*3/uL (160-400); Red Blood Count 3.71 X10*6/uL (4.60-5.80); Red Cell Distribution Width 13.2 % (11.0-16.0); White Blood Count 10.5 X10*3/uL (4.8-10.8)
[2024-04-26] MEDS: Famotidine 20 MG TABLET PO (08:19)
[2024-04-26] MEDS: Magnesium Hydrox/Alum Hydrox 30 ML ORAL.SUSP PO (08:19)
[2024-04-26 08:33] LABS: Alanine Aminotransferase 18 U/L (0-40); Alkaline Phosphatase 73 U/L (39-117); Anion Gap 13 (12-20); Aspartate Amino Transferase 18 U/L (5-37); Bilirubin Direct 0.1 mg/dL (0.0-0.5); Bilirubin Total 0.3 mg/dL (0.0-1.0); Blood Urea Nitrogen 28 mg/dL (9-16); Carbon Dioxide 26 mmol/L (22-29); Chloride 104 mmol/L (96-108); Creatinine Clr Calc Pharmacy 42.8; Estimated Glomerular Filt Rate 23; Glucose Random 139 mg/dL (60-115); Lipase 13 U/L (8-78); Potassium 4.1 mmol/L (3.3-5.1); Sodium 139 mmol/L (135-145); Total Protein 7.7 g/dL (6.5-8.0)
[2024-04-26 08:40] LABS: Troponin-I High Sensitivity 6.8 ng/L (<3.5-35.0)
[2024-04-26 10:16] VITALS: BP 154/84; PULSE 87; RESP 14; TEMP 37; O2SAT 98
== END 2024-04-26 10:17 | disposition home or self-care (01) ==
PROVIDERS: Emergency Provider Student in an Organized Health Care Education/Training Program; PCP Internal Medicine
DX: R07.9 Chest pain, unspecified (principal); R10.13 Epigastric pain; E11.22 Type 2 diabetes mellitus with diabetic chronic kidney disease; I12.9 Hypertensive chronic kidney disease with stage 1 through stage 4 chronic kidney disease, or unspecified chronic kidney disease; N18.30 Chronic kidney disease, stage 3 unspecified; Z79.899 Other long term (current) drug therapy
CPT/HCPCS: 36415; 71046; 80048; 80076; 83690; 84484; 85025; 93005; 99283

== ENCOUNTER → 2024-04-26 07:23 | Outpatient (BNV) | payer OTHER, SELFPAY | PROVIDERS: Emergency Provider Student in an Organized Health Care Education/Training Program; PCP Internal Medicine; Visit Provider Internal Medicine Cardiovascular Disease | DX: R07.9 Chest pain, unspecified (principal) | CPT/HCPCS: 93010 ==

== ENCOUNTER 2024-04-28 18:10 | Emergency (ER) | payer OTHER, SELFPAY ==
--- NOTE | ~2024-04-28 | CT_ITS ---
EXAMINATION: CT ABDOMEN AND PELVIS WITHOUT CONTRAST CLINICAL INFORMATION: Epigastric pain. COMPARISON: September 03, 2022 TECHNIQUE: Multidetector volumetric imaging was performed from the superior aspect of the liver through the pubic symphysis. Sagittal and coronal reformatted images were obtained on the technologist's workstation. This CT examination was performed using dose optimization techniques as appropriate, variously including the following: *Automated exposure control *Adjustment of mA and/or kV according to patient size (this includes techniques or standardized protocols for targeted exams where dose is matched to indication/reason for exam; i.e. extremities or head) *Use of iterative reconstruction technique DLP: 879 mGy-cm FINDINGS: LUNG BASES: The visualized lung bases are unremarkable. LIVER, GALLBLADDER, AND BILIARY TREE: The liver is normal in size, shape, and attenuation. No focal hepatic lesion or biliary ductal dilatation is present. The gallbladder is unremarkable with no evidence of radiopaque gallstones, gallbladder wall thickening, or obvious pericholecystic inflammatory changes. PANCREAS: Unremarkable. SPLEEN: Unremarkable. ADRENAL GLANDS: Unremarkable. KIDNEYS AND URETERS: The right kidney is small. There are bilateral nonobstructing 1 to 2 mm renal calculi. There is no hydronephrosis. There is an approximately 1.1 cm hypodensity mid pole left kidney possibly a small cyst. BLADDER: Unremarkable. GASTROINTESTINAL TRACT: The small and large bowel are unremarkable. The appendix is unremarkable. ABDOMINAL WALL: No significant hernia is appreciated. LYMPH NODES: Normal. VASCULAR: Unremarkable. PELVIC VISCERA: Unremarkable. OSSEOUS STRUCTURES: There is mild to moderate L5-S1 disc degenerative change. CT/CT abdomen pelvis wo IV con IMPRESSION: 1. No acute abnormality. 2. Bilateral nonobstructing renal calculi. 3. Small right kidney. 4. 1.1 cm hypodensity mid pole left kidney possibly a small cyst. Fleischner guidelines were followed. Electronically signed by: Adrian Frazier MD 04/29/2024 06:02 AM GENE
[2024-04-28 18:31] VITALS: BP 127/64; PULSE 91; RESP 20; TEMP 36.6; O2SAT 99; BMI 38.0
--- NOTE | 2024-04-28 18:31 | ED.GENADULT ---
HPI - General Adult General Chief complaint: Abdominal Pain Stated complaint: GI pain Time Seen by Provider: 04/29/24 02:55 Source: patient Mode of arrival: ambulatory Limitations: no limitations History of Present Illness ED Provider: Dr. Mihaela Goldsmith HPI narrative: Patient comes to the emergency room complaining epigastric pain for several days. Patient was seen here 2 days ago. Patient was given medications for gastritis. Patient states that he is still having epigastric burning sensation. Denies chest pain or shortness of breath. Related Data Home Medications ?Medication ?Instructions ?Recorded ?Confirmed insulin glargine 100 unit/mL (3 70 unit subcut DAILY 09/03/22 09/03/22 mL) subcutaneous pen (Lantus Solostar U-100 Insulin) insulin lispro 100 unit/mL 0 - 20 unit subcut TID 09/03/22 09/03/22 subcutaneous pen Previous Rx's ?Medication ?Instructions ?Recorded amoxicillin 875 mg-potassium 1 tab PO BID #14 tabs 09/04/22 clavulanate 125 mg tablet cyclobenzaprine 10 mg tablet 10 mg PO Q8H #10 tabs 07/11/23 naproxen 500 mg tablet 500 mg PO BID PRN pain #10 tabs 07/11/23 oxycodone 5 mg tablet 5 mg PO Q6H PRN pain #14 tabs 07/11/23 aluminum-mag hydroxide-simethicone 10 ml PO Q6H PRN indigestion 04/26/24 200 mg-200 mg-20 mg/5 mL oral susp #3,000 mL (Maalox Advanced) famotidine 20 mg tablet (Pepcid) 20 mg PO BID PRN acid reflux #60 04/26/24 tabs omeprazole 20 mg capsule,delayed 20 mg PO DAILY #90 caps 04/26/24 release sucralfate 1 gram tablet 1 g PO BID #60 tabs 04/29/24 Allergies Allergy/AdvReac Type Severity Reaction Status Date / Time No Known Allergies Allergy Verified 04/28/24 18:32 [No Known Allergies*] Review of Systems Review of Systems: Constitutional : No Weight loss, No Fever, No Chills, No Night Sweats, No Fatigue, No Malaise ENT/Mouth : No Hearing loss, No Ear Pain, No Nasal Congestion, No Sinus Pain, No Hoarseness, No sore throat, No Rhinorrhea, No Swallowing Difficulty Eyes: No Eye Pain, No Swelling, No Redness, No Foreign Body, No Discharge, No Vision Changes Cardiovascular : No Chest Pain, No SOB, No Dyspnea on Exertion, No Orthopnea, No Edema, No Palpitations Respiratory : No Cough, No Sputum, No Wheezing, No Smoke Exposure, No Dyspnea Gastrointestinal : No Nausea, No Vomiting, No Diarrhea, complaining of epigastric burning sensation Genitourinary : no irregular bleeding, No Dysuria, No Urinary Frequency, No Hematuria, No Urinary Incontinence, No Urgency, No Flank Pain, No Urinary Flow Changes, No Hesitancy Musculoskeletal : No joint pain, No Myalgias, No Joint Swelling Skin : No Skin Lesions, No rash Neuro : No Weakness, No Numbness, No Paresthesias, No Loss of Consciousness, No Dizziness, No Headache Psych : No Anxiety/Panic, No Depression, No SI/HI/AH/VH, No Social Issues, Heme/Lymph: No Bruising, No Bleeding,No Lymphadenopathy Endocrine : No Polyuria, No Polydipsia, No Temperature Intolerance [facility] Past Medical History Medical History Hypertension Kidney disease, chronic, stage III (GFR 30-59 ml/min) Diabetes Surgical History H/O neck surgery Social History Social History Household Members: Family Housing: House Do you presently have visiting nurse or other home services: No Alcohol intake: never Patient Tobacco Use Status: Never used Tobacco Smoked in Last 30 Days: No Use of substances other than those prescribed or required for medical reasons: No Advance Directives: No Advance Directives Information Provided: Yes service: No Current occupational status: employed Physical Exam ED Vital Signs: Vital Signs - 24 hr 04/28/24 18:31 04/28/24 22:52 04/29/24 02:45 Temperature 97.9 F 97.3 F 98.1 F Pulse Rate 91 93 93 Respiratory Rate 20 18 16 Blood Pressure 127/64 158/85 H 176/83 H Pulse Oximetry 99 100 96 Oxygen Delivery Method Room Air Room Air Room Air 04/29/24 04:16 Temperature Pulse Rate 95 Respiratory Rate 16 Blood Pressure 164/88 H Pulse Oximetry 99 Oxygen Delivery Method Room Air BMI result Body Mass Index 38.0 Const Other: Appearance: Alert. Oriented X3. No acute distress. Eyes: Pupils equal, round and reactive to light. ENT: Pharynx normal. Neck: Normal inspection. Neck supple. No lymph nodes noted. No crepitus CVS: Normal heart rate and rhythm. Pulses normal. Normal S1 and S2 Respiratory: No respiratory distress. Breath sounds normal. No Wheezing. No rales Abdomen: Soft epigastric pain, no rebound no guarding no distention Skin: Skin warm and dry. Normal skin color. Normal skin turgor. Extremities: No lower extremity edema. No Lacerations. No Rash Neuro: Oriented X 3. No motor deficit. No sensory deficit. Moving all extremities. No slurred speech. CN 2 through 12 grossly intact Psych: calm, cooperative, normal affect Course Course Course Narrative: This is a Rapid Medical Examination (RME) performed by Nichelle Johansen PA-C in triage. Full HPI, ROS, assessment and treatment plan per primary provider in the Main ED. 38 yo male hx of CKD, HTN, DM here for eval of epigastric abd pain, vomiting, and decreased PO intake x days. diagnosed w/ gastritis 2 days ago here, discharged w/ pepcid, omeprazole, maalox which he has been taking without improvement. reports being admitted in the past for this. Plan: labs Medications Administered Discontinued Medications Generic Name Dose Route Start Last Admin Trade Name Freq PRN Reason Stop Dose Admin Al Hydroxide/Mg Hydroxide 30 ml 04/29/24 03:05 04/29/24 04:05 Magnesium Hydrox/Alum Hydrox 30 Ml Oral.Susp PO 04/29/24 03:06 30 ml ONCE ONE Administration Famotidine 20 mg 04/29/24 03:05 04/29/24 04:05 Famotidine 20 Mg Tablet PO 04/29/24 03:06 20 mg ONCE ONE Administration Lidocaine HCl 15 ml 04/29/24 03:04 04/29/24 04:00 Lidocaine Hcl Viscous 2 % 15 Ml Solution MUCOUS MEM 04/29/24 03:05 15 ml ONCE ONE Administration Lidocaine HCl 15 ml 04/29/24 03:04 04/29/24 04:19 Lidocaine Hcl Viscous 2 % 15 Ml Solution MUCOUS MEM 04/29/24 03:05 Not Given ONCE ONE Medical Decision Making Medical Decision Making [facility] Narrative: My interpretation of labs: Patient has chronic leukocytosis, 12.5, per previous notes, chronic leukocytosis suspected to be secondary to patient's multiple comorbidities -patient was seen here 2 days ago, prescribed omeprazole and Maalox. Patient states that he is upset that for his previous visit he was not hospitalized. Patient states that in August of 2022 he had abdominal pain that he was hospitalized and he was expecting the same. I discussed with the patient that the reason he was hospitalized a year ago was because he had appendicitis which is a medical reason to get admitted. Gastritis without complication can be managed at home. -chest x-ray of his previous visit did not show any acute abnormality. Given that the patient has ongoing symptoms, we will obtain a CT scan. Contrast can not be used since patient has a significantly chronically elevated creatinine -patient being given a GI cocktail -patient has been calm, comfortable after GI cocktail -CT scan does not show any acute abnormality that would explain the patient's epigastric pain, discussed with the patient that he will likely eventually need an upper endoscopy if the p.o. treatment does not work Differential Diagnosis Differential Diagnoses: The differential diagnosis associated with the presentation includes (Gastritis, gastroenteritis, peptic ulcer disease, ulcer perforation) Admission/Observation Consideration of admission/observation: Escalation of care including admission/observation considered (Given patient's level of discomfort, observation was considered) Lab Data [facility] Lab Attestation statement: I reviewed the patient's lab results. 04/28/24 18:47 04/28/24 18:47 Labs: Lab Results 04/28/24 Range/Units 18:47 WBC 12.5 H (4.8-10.8) X10*3/uL RBC 3.99 L (4.60-5.80) X10*6/uL Hgb 11.6 L (14.0-18.0) g/dl Hct 34.4 L (42.0-52.0) % MCV 86.2 (80.0-98.0) fL MCH 29.1 (27.0-33.0) pg MCHC 33.7 (31.0-36.0) g/dl RDW 13.0 (11.0-16.0) % Plt Count 310 D (160-400) X10*3/uL MPV 10.7 (9.4-12.4) fL Immature Gran % (Auto) 0.3 (0.0-0.4) % Neut % (Auto) 74.7 H (45-73) % Lymph % (Auto) 17.1 L (20-40) % Graham % (Auto) 6.0 (2-11) % Eos % (Auto) 1.3 (0-4) % Baso % (Auto) 0.6 (0-2) % Lymph # (Auto) 2.1 (1.2-4.9) X10*3/uL Graham # (Auto) 0.8 (0.1-1.2) X10*3/uL Eos # (Auto) 0.2 (0.0-0.4) X10*3/uL Baso # (Auto) 0.1 (0.0-0.2) X10*3/uL Abs Immat Gran (auto) 0.04 H (0.00-0.03) X10*3/uL Absolute Neuts (auto) 9.3 H (2.0-8.3) x10*3/uL Absolute Nucleated RBC 0.000 (0.0-0.012) X10*3/uL Nucleated RBC % (auto) 0.0 (0.0-0.2) /100WBC Sodium 137 (135-145) mmol/L Potassium 4.5 (3.3-5.1) mmol/L Chloride 102 (96-108) mmol/L Carbon Dioxide 22 (22-29) mmol/L Anion Gap 18 (12-20) BUN 27 H (9-16) mg/dL Creatinine 3.16 H (0.5-1.4) mg/dL Estim Creat Clear Calc 41.9 Estimated GFR 22 Random Glucose 177 H (60-115) mg/dL Calcium 10.3 H (8.4-10.2) mg/dL Magnesium 2.5 (1.6-2.6) mg/dL Total Bilirubin 0.4 (0.0-1.0) mg/dL AST 18 (5-37) U/L ALT 15 (0-40) U/L Alkaline Phosphatase 75 (39-117) U/L Total Protein 8.3 H (6.5-8.0) g/dL Albumin 4.3 (3.5-5.0) g/dL Lipase 13 (8-78) U/L Independent Interpretation I performed an independent interpretation of an: CT Scan Radiology Impression Discussion of test interpretation with radiology: I have reviewed the radiologist's reading. Radiologist Impression: LUNG BASES: The visualized lung bases are unremarkable. LIVER, GALLBLADDER, AND BILIARY TREE: The liver is normal in size, shape, and attenuation. No focal hepatic lesion or biliary ductal dilatation is present. The gallbladder is unremarkable with no evidence of radiopaque gallstones, gallbladder wall thickening, or obvious pericholecystic inflammatory changes. PANCREAS: Unremarkable. SPLEEN: Unremarkable. ADRENAL GLANDS: Unremarkable. KIDNEYS AND URETERS: The right kidney is small. There are bilateral nonobstructing 1 to 2 mm renal calculi. There is no hydronephrosis. There is an approximately 1.1 cm hypodensity mid pole left kidney possibly a small cyst. BLADDER: Unremarkable. GASTROINTESTINAL TRACT: The small and large bowel are unremarkable. The appendix is unremarkable. ABDOMINAL WALL: No significant hernia is appreciated. LYMPH NODES: Normal. VASCULAR: Unremarkable. PELVIC VISCERA: Unremarkable. OSSEOUS STRUCTURES: There is mild to moderate L5-S1 disc degenerative change. CT/CT abdomen pelvis wo IV con IMPRESSION: 1. No acute abnormality. 2. Bilateral nonobstructing renal calculi. 3. Small right kidney. 4. 1.1 cm hypodensity mid pole left kidney possibly a small cyst. Critical Care Time Critical Care Time Critical Care Time: Yes Total Critical Care Time: 60 Attestation: I have personally provided critical care time. Time includes review of lab data, radiology results, discussion with consultants, and monitoring for potential decompensation. Intervention performed as documented. Discharge Plan Discharge Clinical Impression: Peptic ulcer disease Patient Disposition: Home, Self-Care Instructions: Peptic Ulcer (ED), Diet for Stomach Ulcers and Gastritis (ED) Additional Instructions: Please follow-up with your primary care physician tomorrow. If you have any worsening or new symptoms, please return to the emergency room or call 911 Prescriptions: New sucralfate 1 gram tablet 1 g PO BID Qty: 60 0RF No Action insulin lispro 100 unit/mL insulin pen 0 - 20 unit subcut TID insulin glargine [Lantus Solostar U-100 Insulin] 100 unit/mL (3 mL) insulin pen 70 unit subcut DAILY amoxicillin-pot clavulanate 875-125 mg tablet 1 tab PO BID Qty: 14 0RF naproxen 500 mg tablet 500 mg PO BID PRN (Reason: pain) Qty: 10 0RF cyclobenzaprine 10 mg tablet 10 mg PO Q8H Qty: 10 0RF oxycodone 5 mg tablet 5 mg PO Q6H PRN (Reason: pain) Qty: 14 0RF Rx Instructions: Partial Fill upon patient request. alum-mag hydroxide-simeth [Maalox Advanced] 200-200-20 mg/5 mL suspension 10 ml PO Q6H PRN (Reason: indigestion) Qty: 3000 0RF famotidine [Pepcid] 20 mg tablet 20 mg PO BID PRN (Reason: acid reflux) Qty: 60 0RF omeprazole 20 mg capsule,delayed release(DR/EC) 20 mg PO DAILY Qty: 90 0RF Print Language: Urdu
[2024-04-28 18:52] LABS: MANUAL DIFF FLAG NO
[2024-04-28 19:03] LABS: Basophils Absolute Auto 0.1 X10*3/uL (0.0-0.2); Basophils Percent Auto 0.6 % (0-2); Eosinophils Absolute Auto 0.2 X10*3/uL (0.0-0.4); Eosinophils Percent Auto 1.3 % (0-4); Hematocrit 34.4 % (42.0-52.0); Hemoglobin 11.6 g/dl (14.0-18.0); Imm Gran Abs Auto 0.04 X10*3/uL (0.00-0.03); Imm Gran Pct Auto 0.3 % (0.0-0.4); Lymphocytes Absolute Auto 2.1 X10*3/uL (1.2-4.9); Lymphocytes Percent Auto 17.1 % (20-40); Mean Corpuscular HGB Conc 33.7 g/dl (31.0-36.0); Mean Corpuscular Hemoglobin 29.1 pg (27.0-33.0); Mean Corpuscular Volume 86.2 fL (80.0-98.0); Mean Platelet Volume 10.7 fL (9.4-12.4); Monocytes Absolute Auto 0.8 X10*3/uL (0.1-1.2); Neutrophils Absolute Auto 9.3 x10*3/uL (2.0-8.3); Neutrophils Percent Auto 74.7 % (45-73); Platelet Count 310 X10*3/uL (160-400); Red Blood Count 3.99 X10*6/uL (4.60-5.80); White Blood Count 12.5 X10*3/uL (4.8-10.8)
[2024-04-28 19:09] LABS: Alanine Aminotransferase 15 U/L (0-40); Albumin Level 4.3 g/dL (3.5-5.0); Alkaline Phosphatase 75 U/L (39-117); Anion Gap 18 (12-20); Aspartate Amino Transferase 18 U/L (5-37); Bilirubin Total 0.4 mg/dL (0.0-1.0); Blood Urea Nitrogen 27 mg/dL (9-16); Calcium 10.3 mg/dL (8.4-10.2); Carbon Dioxide 22 mmol/L (22-29); Chloride 102 mmol/L (96-108); Creatinine Clr Calc Pharmacy 41.9; Estimated Glomerular Filt Rate 22; Glucose Random 177 mg/dL (60-115); Lipase 13 U/L (8-78); Magnesium 2.5 mg/dL (1.6-2.6); Potassium 4.5 mmol/L (3.3-5.1); Sodium 137 mmol/L (135-145); Total Protein 8.3 g/dL (6.5-8.0)
[2024-04-28 22:52] VITALS: BP 158/85; PULSE 93; RESP 18; TEMP 36.3; O2SAT 100
--- NOTE | 2024-04-29 00:20 | PC.NURSE ---
Pt a&ox3, no signs of distress. Pt reports 04/01 upper abd pain Pt reports here two days ago and diagnosed with gastritis given two scripts and sent home. Pt reports pain has gotten worse and he cannot eat or drink anything. Pt denies nausea Plan of care ongoing.
[2024-04-29 02:45] VITALS: BP 176/83; PULSE 93; RESP 16; TEMP 36.7; O2SAT 96
--- NOTE | 2024-04-29 02:57 | ECG_ITS ---
Test Reason : ABD PAIN Blood Pressure : / mmHG Vent. Rate : 088 BPM Atrial Rate : 088 BPM P-R Int : 168 ms QRS Dur : 076 ms QT Int : 358 ms P-R-T Axes : 052 038 091 degrees QTc Int : 433 ms Normal sinus rhythm Nonspecific T wave abnormality Abnormal ECG When compared with ECG of 26-APR-2024 07:18, No significant change was found Referred By: Mihaela Goldsmith Electronically Signed By:ISMAEL PARIKH MD
[2024-04-29] MEDS: Lidocaine HCl Viscous 2 % 15 ML SOLUTION MUCOUS MEM (04:00)
[2024-04-29] MEDS: Magnesium Hydrox/Alum Hydrox 30 ML ORAL.SUSP PO (04:05)
[2024-04-29] MEDS: Famotidine 20 MG TABLET PO (04:05)
[2024-04-29 04:16] VITALS: BP 164/88; PULSE 95; RESP 16; O2SAT 99
[2024-04-29 06:35] VITALS: BP 170/88; PULSE 89; RESP 18; TEMP 36.8; O2SAT 97
[2024-04-29 07:15] VITALS: BP 170/88; PULSE 89; RESP 18; TEMP 36.8; O2SAT 97
== END 2024-04-29 07:16 | disposition home or self-care (01) ==
PROVIDERS: Physician Assistant Medical; Emergency Provider Emergency Medicine; PCP Nurse Practitioner Family
DX: K27.9 Peptic ulcer, site unspecified, unspecified as acute or chronic, without hemorrhage or perforation (principal); R94.31 Abnormal electrocardiogram [ECG] [EKG]; R10.13 Epigastric pain; R10.2 Pelvic and perineal pain; Z79.899 Other long term (current) drug therapy
CPT/HCPCS: 36415; 74176; 80053; 83690; 83735; 85025; 93005; 99284; 99285

== ENCOUNTER → 2024-04-29 02:57 | Outpatient (BNV) | payer OTHER, SELFPAY | PROVIDERS: Emergency Provider Emergency Medicine; PCP Nurse Practitioner Family; Visit Provider Internal Medicine Cardiovascular Disease | DX: R94.31 Abnormal electrocardiogram [ECG] [EKG] (principal) | CPT/HCPCS: 93010 ==

== ENCOUNTER 2024-06-02 10:31 | Outpatient (REF) | payer OTHER, SELFPAY ==
[2024-06-02 11:45] LABS: Creatinine Urine 194.52 mg/dL
[2024-06-02 11:56] LABS: Microalbum/Creatinine Ratio Ur 1028.1 ug/mg cr (<30); Microalbumin Urine > 2000.0 mg/L
[2024-06-02 12:04] LABS: Alanine Aminotransferase 16 U/L (0-40); Albumin Level 3.7 g/dL (3.5-5.0); Alkaline Phosphatase 80 U/L (39-117); Anion Gap 11 (12-20); Aspartate Amino Transferase 16 U/L (5-37); Bilirubin Total 0.3 mg/dL (0.0-1.0); Blood Urea Nitrogen 21 mg/dL (9-16); Carbon Dioxide 28 mmol/L (22-29); Chloride 108 mmol/L (96-108); Cholesterol 92 mg/dL (<200); Estimated Glomerular Filt Rate 30; Glucose Random 178 mg/dL (60-115); HDL Cholesterol 37 mg/dL (>40); LDL Cholesterol Calculated 43 mg/dL (<100); Potassium 3.7 mmol/L (3.3-5.1); Sodium 143 mmol/L (135-145); Total Protein 6.9 g/dL (6.5-8.0); Triglycerides 61 mg/dL (<150)
[2024-06-02 13:20] LABS: MANUAL DIFF FLAG NO
[2024-06-02 13:25] LABS: Basophils Percent Auto 0.3 % (0-2); Eosinophils Percent Auto 0.2 % (0-4); Hematocrit 32.4 % (42.0-52.0); Hemoglobin 10.3 g/dl (14.0-18.0); Imm Gran Abs Auto 0.02 X10*3/uL (0.00-0.03); Imm Gran Pct Auto 0.2 % (0.0-0.4); Lymphocytes Absolute Auto 1.9 X10*3/uL (1.2-4.9); Lymphocytes Percent Auto 20.1 % (20-40); Mean Corpuscular HGB Conc 31.8 g/dl (31.0-36.0); Mean Corpuscular Hemoglobin 28.1 pg (27.0-33.0); Mean Corpuscular Volume 88.3 fL (80.0-98.0); Mean Platelet Volume 11.4 fL (9.4-12.4); Monocytes Absolute Auto 0.6 X10*3/uL (0.1-1.2); Monocytes Percent Auto 5.8 % (2-11); Neutrophils Absolute Auto 6.9 x10*3/uL (2.0-8.3); Neutrophils Percent Auto 73.4 % (45-73); Platelet Count 242 X10*3/uL (160-400); Red Blood Count 3.67 X10*6/uL (4.60-5.80); Red Cell Distribution Width 12.6 % (11.0-16.0); White Blood Count 9.4 X10*3/uL (4.8-10.8)
[2024-06-02 13:50] LABS: Phosphorus 2.9 mg/dL (2.7-4.5)
== END 2024-06-02 10:32 | disposition home or self-care (01) ==
LOC: HO.HHCL 10:31
PROVIDERS: Visit Provider Nurse Practitioner Family
DX: E10.22 Type 1 diabetes mellitus with diabetic chronic kidney disease (principal); N18.4 Chronic kidney disease, stage 4 (severe)
CPT/HCPCS: 36415; 80053; 80061; 82043; 82570; 84100; 85025

== ENCOUNTER 2024-06-02 12:05 | Outpatient (REF) | payer OTHER, SELFPAY | END 2024-06-02 12:06 | disposition home or self-care (01) | LOC: HO.HHCL 12:05 | PROVIDERS: Visit Provider Nurse Practitioner Family | DX: Z13.89 Encounter for screening for other disorder (principal) ==

== ENCOUNTER 2024-06-17 12:14 | Outpatient (AMB) | payer OTHER, SELFPAY ==
--- NOTE | 2024-06-17 12:12 | HO.NEPHOV_ITS ---
Vital Signs 06/17/24 12:14 Weight 254 lb 4 oz BP 118/70 Blood Pressure Location Lt brachial Position Sitting Pulse 93 Pulse Source Pulse Oximeter Pulse Oximetry (%) 99 Oxygen Delivery Method Room Air Intake Visit Reasons: ENP: CKD stage 3/ Conf System Administration Advisor Required: No Accompanied by: Self / Same As Patient Allergies No Known Allergies [No Known Allergies*] Allergy (Verified 06/17/24 12:15) Do you need a note to return to daycare/school/sports/work: No HPI Comments Details: Jordy is a pleasant 39-year-old man with a history of longstanding hypertension on insulin. He has had chronic kidney disease with a baseline creatinine of around 2.2 mg/dL. Back in 2020 EGFR was around 33 mL/minute. Recently creatinine bumped up to 3.3 and has stabilized around 2.4 mg/dL. He has been referred for further evaluation. Jordy does me that his blood sugar has been poorly controlled until recently. He has hemoglobin A1c were usually was in the double digits. Recent hemoglobin A1c has been around less than 7%. Blood pressure has been suboptimal. Lisinopril has been added recently. Today he has no specific complaints. No nausea or vomiting no abdominal constipation no urinary symptoms no fever no rash. [facility] Medical History Hypertension Kidney disease, chronic, stage III (GFR 30-59 ml/min) Diabetes Surgical History H/O neck surgery Social History Household Members: Family Housing: House Do you presently have visiting nurse or other home services: No Alcohol intake: never Patient Tobacco Use Status: Never used Tobacco service: No Current occupational status: employed Review of Systems Const Denies fever(s) and Denies weight loss Card Denies chest pain Resp Denies cough and Denies hemoptysis GI Denies abdominal pain, Denies diarrhea and Denies nausea Musc Denies back pain Neuro Denies focal weakness Physical Exam Vital Signs: Last Vital Signs Pulse 93 06/17/24 12:14 BP 118/70 06/17/24 12:14 Pulse Ox 99 06/17/24 12:14 Oxygen Delivery Method Room Air 06/17/24 12:14 Const General: comfortable; No acute distress Orientation/consciousness: patient oriented x3 Eyes General: appearance normal, both eyes and all related structures Visual Mccoy: normal visual mccoy by confrontation Neck Neck: Yes supple and Yes no JVD Resp Effort & Inspection: normal respiratory effort and respiratory effort not decreased Auscultation: rhonchi Cardio Palpation: no palpable S3 and no palpable S4 Heart sounds: no rubs GI Inspection: Yes normal to inspection Palpation (GI): Soft to palpation Percussion: Yes normal to percussion Auscultation: normal bowel sounds General: Yes no CVA tenderness Back/Spine/Pelvis Back: no CVA tenderness Skin General skin exam: no petechiae and no purpura Neuro General: patient oriented x3 and no focal motor deficits Extrem General: No clubbing and No edema Results Reviewed Nephrology Results: Hgb 10.3 g/dl (14.0-18.0) L 06/02/24 WBC 9.4 X10*3/uL (4.8-10.8) 06/02/24 Plt Count 242 X10*3/uL (160-400) 06/02/24 Sodium 143 mmol/L (135-145) 06/02/24 Potassium 3.7 mmol/L (3.3-5.1) 06/02/24 Chloride 108 mmol/L (96-108) 06/02/24 Carbon Dioxide 28 mmol/L (22-29) 06/02/24 BUN 21 mg/dL (9-16) H 06/02/24 Creatinine 2.42 mg/dL (0.5-1.4) H 06/02/24 Calcium 10.0 mg/dL (8.4-10.2) 06/02/24 Phosphorus 2.9 mg/dL (2.7-4.5) 06/02/24 Urine Protein >=1000 (4+) mg/dL (Neg-Trace) H 3 Urine Creatinine 194.52 mg/dL 06/02/24 Assessment & Plan Assessment & Plan (1) Acute on chronic renal insufficiency: Code(s): N28.9 - Disorder of kidney and ureter, unspecified; N18.9 - Chronic kidney disease, unspecified Category: Medical Plan 39-year-old man with stage IIIb CKD most likely due to diabetic nephropathy. He has significant nephrotic range proteinuria. Nondiabetic causes should certainly be ruled out. I have initiated workup for CKD/proteinuria. History of hypertension however blood pressure today is well controlled. Encouraged him to stay on low-sodium diet I have not made any changes in his medication today. I will screen him for anemia and secondary hyperparathyroidism prior to his next visit. Orders: Orders Complement C3 2 Weeks N18.9 - Chronic kidney disease, unspecified, N28.9 - Disorder of kidney and ureter, unspecified Complement C4 2 Weeks N18.9 - Chronic kidney disease, unspecified, N28.9 - Disorder of kidney and ureter, unspecified Basic Metabolic Panel 2 Weeks N18.9 - Chronic kidney disease, unspecified, N28.9 - Disorder of kidney and ureter, unspecified Phospholipase A2 Receptor Pnl 2 Weeks N18.9 - Chronic kidney disease, unspecified, N28.9 - Disorder of kidney and ureter, unspecified Parathyroid Hormone Intact 2 Weeks N18.9 - Chronic kidney disease, unspecified, N28.9 - Disorder of kidney and ureter, unspecified US renal BI Today I10 - Essential (primary) hypertension, N18.9 - Chronic kidney disease, unspecified, N28.9 - Disorder of kidney and ureter, unspecified Medications: Discontinued amoxicillin-pot clavulanate 875-125 mg Discontinued Reason: Patient no longer taking 1 tab PO BID 14 tabs 0RF naproxen Discontinued Reason: Patient no longer taking 500 mg PO BID PRN 10 tabs 0RF pain oxycodone Partial Fill upon patient request. Discontinued Reason: Patient no longer taking 5 mg PO Q6H PRN 14 tabs 0RF pain alum-mag hydroxide-simeth 200-200-20 mg/5 mL (Maalox Advanced) Discontinued Reason: Patient no longer taking 10 mL PO Q6H PRN 3,000 mL 0RF indigestion Coding Level of Care Code New Pt Level 5 (15662) Diagnoses Acute on chronic renal insufficiency N28.9; N18.9
[2024-06-17 12:14] VITALS: BP 118/70; PULSE 93; O2SAT 99
== END 2024-06-17 12:28 | disposition home or self-care (01) ==
PROVIDERS: PCP Nurse Practitioner Family; Visit Provider Internal Medicine Hypertension Specialist
DX: I12.9 Hypertensive chronic kidney disease with stage 1 through stage 4 chronic kidney disease, or unspecified chronic kidney disease (principal); E11.22 Type 2 diabetes mellitus with diabetic chronic kidney disease; N18.32 Chronic kidney disease, stage 3b
CPT/HCPCS: 99204

== ENCOUNTER → 2024-06-17 12:14 | Outpatient (BNVA) | payer OTHER, SELFPAY | PROVIDERS: PCP Nurse Practitioner Family; Visit Provider Internal Medicine Hypertension Specialist | DX: I12.9 Hypertensive chronic kidney disease with stage 1 through stage 4 chronic kidney disease, or unspecified chronic kidney disease (principal); N18.30 Chronic kidney disease, stage 3 unspecified | CPT/HCPCS: 99202 ==